=== PATIENT | male | born 1965 | race Caucasian/White ===

== ENCOUNTER 2017-10-14 18:54 | Inpatient (IN) | payer SELFPAY ==
[~2017-10-14] VITALS: Ht 185.4 cm; Wt 98.6 kg
[~2017-10-14 18:54] MED LIST: TOPA50TA7 PO; VIST50CA PO
[2017-10-14 19:10] VITALS: BP 160/111; PULSE 115; RESP 22; TEMP 98.3; O2SAT 95
[2017-10-14] MEDS ORDERED: SODIUM CHLOR 0.9% 1000 ML INJ 1,000 ML IV SCH ×2 (19:10→21:30)
[2017-10-14] MEDS ORDERED: ONDANSETRON HCL 4 MG/2 ML VIAL IVP ONE (19:15)
[2017-10-14] MEDS ORDERED: SODIUM CHLORIDE 0.9% FLUSH 10 ML FLUSH IV FLUSH PRN (19:15)
[2017-10-14] MEDS ORDERED: PANTOPRAZOLE SODIUM 40 MG VIAL IVP ONE (19:15)
[2017-10-14] MEDS ORDERED: HYDROmorphone HCL PF 2 MG/ML VIAL IV PUSH ONE ×2 (19:15→19:45)
--- NOTE | 2017-10-14 19:15 | PD ---
HPI Chief Complaint: Abdominal Pain Time Seen by Provider: 19:10 Travel History International Travel<30 days: No Contact w/Intl Traveler<30days: No Traveled to known affect area: No History of Present Illness HPI 52-year-old male presents to the emergency department by private transportation for severe abdominal pain since last evening. Symptoms have been persistent. Patient had nausea no report of hematemesis coffee-ground emesis or bilious emesis. Symptoms began after eating Belgian food last evening. Patient has history of previous pancreatitis and denies gallbladder disease or peptic ulcer disease. Patient also has history of mood disorder has been out of his medication for 2 months. No report of fever or chills. No complaint of chest pain but does complain of shortness of breath. Patient is very anxious and intermittently volatile in his speak and relying history information. Budget Manager also provides history. Pain is severe and constant. Symptoms are worsened by movement and talking. History of alcohol use. Last alcohol use 3 days ago. PFSH Past Medical History Narrative Medical Anxiety depression adjustment disorder pancreatitis; alcohol use; nursing notes reviewed Anxiety: Yes Depression: Yes Psychiatric: Yes (ba in past) Pancreatitis: Yes Social History Alcohol Use: Yes (hx of 4 -10 a day) Tobacco Use: No Substance Use: Yes (ALCOHOL ABUSE) Allergies-Medications (Allergen,Severity, Reaction): Coded Allergies: No Known Allergies (Verified Adverse Reaction, Unknown, 10/14/17) Reported Meds & Prescriptions Reported Meds & Active Scripts Active Reported Vistaril (Hydroxyzine Pamoate) 50 Mg Cap 50 Mg PO HS Topamax (Topiramate) 50 Mg Tab 50 Mg PO BID Review of Systems Except as stated in HPI: all other systems reviewed are Neg Physical Exam Narrative GENERAL: Well-developed well-nourished male in obvious discomfort SKIN: Warm and dry. HEAD: Normocephalic. EYES: No scleral icterus. No injection or drainage. NECK: Supple, trachea midline. No JVD or lymphadenopathy. CARDIOVASCULAR: Regular rate and rhythm without murmurs, gallops, or rubs. RESPIRATORY: Breath sounds equal bilaterally. No accessory muscle use. GASTROINTESTINAL: Abdomen soft, tender, nondistended. MUSCULOSKELETAL: No cyanosis, or edema. BACK: Nontender without obvious deformity. No CVA tenderness. Data Data Last Documented VS Vital Signs Date Time Temp Pulse Resp B/P (MAP) Pulse Ox O2 Delivery O2 Flow Rate FiO2 10/14/17 20:17 18 10/14/17 19:57 111 151/104 (120) 95 Room Air 10/14/17 19:10 98.3 Orders Orders Complete Blood Count With Diff (10/14/17 19:10) Comprehensive Metabolic Panel (10/14/17 19:10) Lipase (10/14/17 19:10) Lactic Acid (10/14/17:10) Prothrombin Time / Inr (Pt) (10/14/17:10) Act Partial Throm Time (Ptt) (10/14/17:10) Urinalysis - C+S If Indicated (10/14/17:10) Ct Abd/Pel W Iv Contrast(Rout) (10/14/17:10) Iv Access Insert/Monitor (10/14/17 19:10) Ecg Monitoring (10/14/17:10) Oximetry (10/14/17:10) Ondansetron Inj (Zofran Inj) (10/14/17 19:15) Pantoprazole Inj (Protonix Inj) (10/14/17 19:15) Sodium Chlor 0.9% 1000 Ml Inj (Ns 1000 M (10/14/17 19:10) Sodium Chloride 0.9% Flush (Ns Flush) (10/14/17 19:15) Electrocardiogram (10/14/17 19:10) Chest, Single Ap (10/14/17 19:10) Hydromorphone Pf Inj (Dilaudid Pf Inj) (10/14/17 19:15) Magnesium (Mg) (10/14/17 19:10) Troponin I (10/14/17 19:10) Hydromorphone Pf Inj (Dilaudid Pf Inj) (10/14/17 19:45) Sodium Chlor 0.9% 1000 Ml Inj (Ns 1000 M (10/14/17 20:15) Blood Culture (10/14/17 20:04) Piperacil-Tazo 4.5 Gm Premix (Zosyn 4.5 (10/14/17 20:15) Sodium Chlor 0.9% 1000 Ml Inj (Ns 1000 M (10/14/17 20:15) Lactic Acid (10/14/17 21:20) Iohexol 350 Inj (Omnipaque 350 Inj) (10/14/17 20:47) Alcohol Withdrawal Asmt-Ciwa ONCE (10/14/17 21:24) Flumazenil Inj (Romazicon Inj) (10/14/17 21:30) Lorazepam (Ativan) (10/14/17 21:30) Lorazepam Inj (Ativan Inj) (10/14/17 21:30) Lorazepam (Ativan) (10/14/17 21:30) Lorazepam Inj (Ativan Inj) (10/14/17 21:30) Lorazepam Inj (Ativan Inj) (10/14/17 21:30) Lorazepam Inj (Ativan Inj) (10/14/17 21:30) NPO (10/14/17 21:24) Sodium Chlor 0.9% 1000 Ml Inj (Ns 1000 M (10/14/17 21:30) Admit Order (Ed Use Only) (10/14/17 ) [employer] General Manager / Telemetry [id number] (10/14/17 21:31) Diet Npo (10/15/17 Breakfast) Activity Oob With Assistance (10/14/17 21:31) Notify Dr: Other (10/14/17 21:31) Labs Laboratory Tests Test 10/14/17 19:20 White Blood Count 17.1 TH/MM3 Red Blood Count 6.14 MIL/MM3 Hemoglobin 18.5 GM/DL Hematocrit 56.3 % Mean Corpuscular Volume 91.8 FL Mean Corpuscular Hemoglobin 30.2 PG Mean Corpuscular Hemoglobin Concent 32.9 % Red Cell Distribution Width 13.4 % Platelet Count 308 TH/MM3 Mean Platelet Volume 8.6 FL Neutrophils (%) (Auto) 85.0 % Lymphocytes (%) (Auto) 8.9 % Monocytes (%) (Auto) 5.4 % Eosinophils (%) (Auto) 0.3 % Basophils (%) (Auto) 0.4 % Neutrophils # (Auto) 14.5 TH/MM3 Lymphocytes # (Auto) 1.5 TH/MM3 Monocytes # (Auto) 0.9 TH/MM3 Eosinophils # (Auto) 0.1 TH/MM3 Basophils # (Auto) 0.1 TH/MM3 CBC Comment DIFF FINAL Differential Comment Prothrombin Time 10.4 SEC Prothromb Time International Ratio 1.0 RATIO Activated Partial Thromboplast Time 25.0 SEC Blood Urea Nitrogen 10 MG/DL Creatinine 1.30 MG/DL Random Glucose 175 MG/DL Total Protein 7.7 GM/DL Albumin 3.9 GM/DL Calcium Level 9.1 MG/DL Magnesium Level 2.2 MG/DL Alkaline Phosphatase 90 U/L Aspartate Amino Transf (AST/SGOT) 63 U/L Alanine Aminotransferase (ALT/SGPT) 100 U/L Total Bilirubin 1.7 MG/DL Sodium Level 135 MEQ/L Potassium Level 3.9 MEQ/L Chloride Level 98 MEQ/L Carbon Dioxide Level 23.0 MEQ/L Anion Gap 14 MEQ/L Estimat Glomerular Filtration Rate 58 ML/MIN Lactic Acid Level 4.2 mmol/L Troponin I LESS THAN 0.02 NG/ML Lipase 6448 U/L MDM Medical Decision Making Medical Screen Exam Complete: Yes Emergency Medical Condition: Yes Medical Record Reviewed: Yes Interpretation(s) Stat portable chest x-ray no subdiaphragmatic free air or pneumoperitoneum no effusion CT a/p: CONCLUSION: Findings are suspicious for acute pancreatitis with stranding and induration of the peripancreatic fat and some free fluid tracking along Gerota's fascia on the right side. Naren Worthington MD on October 14, 2017 at 20:52 Board Certified Radiologist. This report was verified electronically. CBC & BMP Diagram 10/14/17 19:20 Total Protein 7.7, Albumin 3.9, Calcium Level 9.1, Magnesium Level 2.2, Alkaline Phosphatase 90, Aspartate Amino Transf (AST/SGOT) 63 H, Alanine Aminotransferase (ALT/SGPT) 100 H, Total Bilirubin 1.7 H Vital Signs Date Time Temp Pulse Resp B/P (MAP) Pulse Ox O2 Delivery O2 Flow Rate FiO2 10/14/17 20:17 18 10/14/17 19:57 111 20 151/104 (120) 95 Room Air 10/14/17 19:52 20 10/14/17 19:28 22 98 Room Air 10/14/17 19:10 98.3 115 22 160/111 (127) 95 Differential Diagnosis Abdominal pain pancreatitis perforated viscus cholecystitis choledocholithiasis bowel obstruction ACS myocardial infarction aortic dissection alcohol withdrawal Boerhaave's Narrative Course Patient placed on hospital monitor in obvious distress IV access obtained specimens collected and sent for resulting patient ordered Zofran 4 mg IV Dilaudid 1 mg IV and IV fluids patient kept n.p.o. Patient given additional dose of Dilaudid 1 mg IV and additional liter of normal saline 8:30 PM patient has clinically improved blood pressure has responded to medication heart rate has improved patient continues to have very tender abdomen on exam has been sent to CT for imaging study lab values are consistent with acute pancreatitis; based on fluoroscopy sepsis criteria and patient meets sepsis criteria blood cultures obtained additional lactic acid ordered and patient presumptively covered with Zosyn 4.[address] consistent with acute pancreatitis Patient's case discussed with on-call medicine for admission and [place] precautions added to ED orders due to history of alcohol use/alcohol consumption 3 days ago. Sepsis Criteria SIRS Criteria (2 or more): Heart rate over 90, WBC > 44874, < 4000 or > 10% bands Sepsis Criteria (SIRS+source): Infect source susp/known Severe Sepsis (+one): Lactate >2 Septic Shock Criteria: Lactic acid >=4 Physician Communication Physician Communication call placed to [facility] service for admission Diagnosis Primary Impression: Pancreatitis, acute Additional Impressions: H/O alcohol abuse Sepsis Admitting Information Admitting Physician Requests: Admit Mikaela Andrew MD Oct 14, 2017 19:15
--- NOTE | 2017-10-14 19:26 | RADRPT ---
EXAM DATE/TIME: 10/14/2017 19:15 [facility] COMPARISON: No previous studies available for comparison. INDICATIONS : Evaluate for free air. MEDICAL HISTORY : None. SURGICAL HISTORY : None. ENCOUNTER: Initial ACUITY: 1 day PAIN SCORE: 10/10 LOCATION: Bilateral lower chest FINDINGS: A single portable upright view of the chest demonstrates the lungs to be symmetrically aerated withou t evidence of mass, infiltrate or effusion. The cardiomediastinal contours are unremarkable. Osseou s structures are intact. No evidence of free air under either hemidiaphragm. CONCLUSION: The lungs are clear. Naren Worthington MD on October 14, 2017 at 19:23 Board Certified Radiologist. This report was verified electronically.
[2017-10-14 19:28] VITALS: RESP 22; O2SAT 98
[2017-10-14 19:41] LABS: AUTOMATED NEUTROPHIL # 14.5 TH/MM3 (1.8-7.7); BASOPHIL # 0.1 TH/MM3 (0-0.2); BASOPHIL % 0.4 % (0.0-2.0); EOSINOPHIL # 0.1 TH/MM3 (0-0.4); EOSINOPHIL % 0.3 % (0.0-4.0); HEMATOCRIT 56.3 % (39.0-51.0); HEMOGLOBIN 18.5 GM/DL (13.0-17.0); LYMPH % 8.9 % (9.0-44.0); LYMPHOCYTE # 1.5 TH/MM3 (1.0-4.8); MEAN CELL VOLUME 91.8 FL (80.0-100.0); MEAN CORPUSCULAR HEMOGLOBIN 30.2 PG (27.0-34.0); MEAN CORPUSCULAR HGB CONC 32.9 % (32.0-36.0); MEAN PLATELET VOLUME 8.6 FL (7.0-11.0); MONO % 5.4 % (0.0-8.0); MONOCYTE # 0.9 TH/MM3 (0-0.9); PLATELET COUNT 308 TH/MM3 (150-450); RED BLOOD COUNT 6.14 MIL/MM3 (4.50-5.90); RED CELL DISTRIBUTION WIDTH 13.4 % (11.6-17.2); WHITE BLOOD COUNT 17.1 TH/MM3 (4.0-11.0)
[2017-10-14 19:42] LABS: CHLORIDE 98 MEQ/L (98-107); SODIUM (NA) 135 MEQ/L (136-145)
[2017-10-14 19:45] LABS: CALCIUM 9.1 MG/DL (8.5-10.1)
[2017-10-14 19:46] LABS: ALBUMIN 3.9 GM/DL (3.4-5.0); BLOOD UREA NITROGEN 10 MG/DL (7-18); GLUCOSE,RANDOM 175 MG/DL (74-106); MAGNESIUM 2.2 MG/DL (1.5-2.5)
[2017-10-14 19:49] LABS: ALT (GPT) 100 U/L (12-78); AST (GOT) 63 U/L (15-37); GLOMERULAR FILTRATION RATE 58 ML/MIN (>89)
[2017-10-14 19:50] LABS: TOTAL BILIRUBIN ADULT 1.7 MG/DL (0.2-1.0); TOTAL PROTEIN 7.7 GM/DL (6.4-8.2)
[2017-10-14 19:52] LABS: ALKALINE PHOSPHATASE 90 U/L (45-117)
[2017-10-14 19:53] LABS: PROTHROMBIN TIME - PATIENT 10.4 SEC (9.8-11.6)
[2017-10-14 19:54] LABS: TROPONIN I LESS THAN 0.02 NG/ML (0.02-0.05)
[2017-10-14 19:57] VITALS: BP 151/104; PULSE 111; RESP 20; O2SAT 95
[2017-10-14] MEDS ORDERED: PIPERACIL-TAZO 4.5 GM PREMIX 100 ML IV ONE (20:15)
[2017-10-14] MEDS ORDERED: SODIUM CHLOR 0.9% 1000 ML INJ 1,000 ML IV ONE ×2 (20:15)
[2017-10-14] MEDS ORDERED: IOHEXOL 350 MG/ML 10 ML VIAL (for RAD DIAG) IVCONTRAST ONE (20:47)
--- NOTE | 2017-10-14 20:58 | RADRPT ---
EXAM DATE/TIME: 10/14/2017 20:30 [facility] COMPARISON: CT ABDOMEN & PELVIS W CONTRAST, March 13, 2016, 8:04. INDICATIONS : Epigastric pain. IV CONTRAST: 100 cc Omnipaque 350 (iohexol) IV ORAL CONTRAST: No oral contrast ingested. RADIATION DOSE: 14.04 CTDIvol (mGy) MEDICAL HISTORY : Pancreatitis. SURGICAL HISTORY : None. ENCOUNTER: Initial ACUITY: 1 day PAIN SCALE: 10/10 LOCATION: Bilateral upper quadrant TECHNIQUE: Volumetric scanning of the abdomen and pelvis was performed. Using automated exposure control and ad justment of the mA and/or kV according to patient size, radiation dose was kept as low as reasonably achievable to obtain optimal diagnostic quality images. DICOM format image data is available electro nically for review and comparison. FINDINGS: LOWER LUNGS: There are patchy areas of interstitial opacity in the lower right lung which is a new finding from pr ior CT. No focal areas of consolidation or pleural effusion stop LIVER: Severe diffuse fatty change of the liver unchanged from prior. The gallbladder is distended, but no calcified gallstones. SPLEEN: Normal size without lesion. PANCREAS: Abnormal appearance to the anterior pararenal space with strandy densities surrounding the pancreas; no focal fluid collections within the anterior pararenal space, but there is some free fluid tracking along the anterior margin of Gerota's fascia and the right upper quadrant. No evidence of pseudocys t. KIDNEYS: Normal in size and shape. There is no mass, stone or hydronephrosis. The small left renal cysts are similar to prior. ADRENAL GLANDS: Within normal limits. VASCULAR: There is no aortic aneurysm. BOWEL/MESENTERY: The stomach, small bowel, and colon demonstrate no acute abnormality. There is no free intraperitone al air or fluid. ABDOMINAL WALL: Within normal limits. RETROPERITONEUM: There is no lymphadenopathy. BLADDER: No wall thickening or mass. REPRODUCTIVE: Within normal limits. INGUINAL: There is no lymphadenopathy or hernia. MUSCULOSKELETAL: Within normal limits for patient age. CONCLUSION: Findings are suspicious for acute pancreatitis with stranding and induration of the peripancreatic fa t and some free fluid tracking along Gerota's fascia on the right side. Naren Worthington MD on October 14, 2017 at 20:52 Board Certified Radiologist. This report was verified electronically.
[2017-10-14] MEDS ORDERED: BISACODYL 10 MG SUPP RECTAL PRN (21:30)
[2017-10-14] MEDS ORDERED: ONDANSETRON HCL 4 MG/2 ML VIAL IVP PRN (21:30)
[2017-10-14] MEDS ORDERED: LORazepam 1 MG TAB PO PRN (21:30)
[2017-10-14] MEDS ORDERED: FLUMAZENIL 0.5 MG/5 ML VIAL IV PUSH PRN (21:30)
[2017-10-14] MEDS ORDERED: ACETAMINOPHEN 325 MG TAB PO PRN (21:30)
[2017-10-14] MEDS ORDERED: LORazepam 2 MG/ML VIAL IV PUSH PRN ×4 (21:30)
[2017-10-14] MEDS ORDERED: ACETAMINOPHEN/HYDROcodone 325 MG/5 MG TAB PO PRN (21:30)
[2017-10-14] MEDS ORDERED: SENNOSIDES 8.6 MG TAB PO PRN (21:30)
[2017-10-14] MEDS ORDERED: MAGNESIUM HYDROXIDE SUSP 30 ML CUP PO PRN (21:30)
[2017-10-14] MEDS ORDERED: LACTULOSE SYRUP 20 GM/30 ML CUP PO PRN (21:30)
[2017-10-14] MEDS ORDERED: LORazepam 2 MG TAB PO PRN (21:30)
[2017-10-14 22:13] LABS: BILIRUBIN, URINE NEG (NEG); BLOOD, URINE NEG (NEG); GLUCOSE,URINE NEG (NEG); KETONE, URINE NEG (NEG); NITRITE,URINE NEG (NEG); PH, URINE 8.5 (5.0-8.5); URINE LEUKOCYTE ESTERASE NEG (NEG)
[2017-10-14 22:21] LABS: MUCUS URINE OCC /lpf (OCC); SQUAMOUS EPITHELIAL CELL URINE 0-5 /hpf (0-5); URINE COLOR YELLOW (YELLW/STRAW)
[2017-10-14] MEDS: SODIUM CHLOR 0.9% 1000 ML INJ 1,000 ML IV SCH (22:25)
[2017-10-14 22:38] VITALS: BP 157/105; PULSE 98; RESP 16; O2SAT 97
[2017-10-14 22:50] VITALS: BP 176/101; PULSE 65; RESP 20; TEMP 96.3; O2SAT 95
[2017-10-14] MEDS ORDERED: cloNIDine HCL 0.1 MG TAB PO ONE (23:15)
[2017-10-15] VITALS (9 sets, daily range): BP systolic 127–175; BP diastolic 84–110; PULSE 64–84; RESP 14–20; TEMP 96.7–98.1; O2SAT 96–97
[2017-10-15] MEDS: MORPHINE SULFATE 2 MG/ML INJ IV PUSH PRN ×2 (00:03→03:07)
[2017-10-15] MEDS: PIPERACIL-TAZO 4.5 GM PREMIX 100 ML IV SCH ×4 (01:56→21:02)
[2017-10-15] MEDS ORDERED: MORPHINE SULFATE 4 MG/ML INJ IV PUSH ONE (05:30)
[2017-10-15] MEDS: SODIUM CHLOR 0.9% 1000 ML INJ 1,000 ML IV SCH ×2 (05:59→17:23)
[2017-10-15 06:19] LABS: AUTOMATED NEUTROPHIL # 11.1 TH/MM3 (1.8-7.7); BASOPHIL % 0.1 % (0.0-2.0); EOSINOPHIL # 0.1 TH/MM3 (0-0.4); EOSINOPHIL % 0.5 % (0.0-4.0); HEMOGLOBIN 15.8 GM/DL (13.0-17.0); LYMPH % 10.1 % (9.0-44.0); LYMPHOCYTE # 1.3 TH/MM3 (1.0-4.8); MEAN CELL VOLUME 90.9 FL (80.0-100.0); MEAN CORPUSCULAR HEMOGLOBIN 31.3 PG (27.0-34.0); MEAN CORPUSCULAR HGB CONC 34.4 % (32.0-36.0); MEAN PLATELET VOLUME 8.1 FL (7.0-11.0); MONO % 5.5 % (0.0-8.0); MONOCYTE # 0.7 TH/MM3 (0-0.9); NEUT % 83.8 % (16.0-70.0); PLATELET COUNT 206 TH/MM3 (150-450); RED BLOOD COUNT 5.06 MIL/MM3 (4.50-5.90); RED CELL DISTRIBUTION WIDTH 13.6 % (11.6-17.2); WHITE BLOOD COUNT 13.2 TH/MM3 (4.0-11.0)
[2017-10-15 06:36] LABS: ALBUMIN 3.1 GM/DL (3.4-5.0); ALKALINE PHOSPHATASE 65 U/L (45-117); ALT (GPT) 66 U/L (12-78); AST (GOT) 42 U/L (15-37); BICARBONATE 25.9 MEQ/L (21.0-32.0); BLOOD UREA NITROGEN 8 MG/DL (7-18); CALCIUM 7.7 MG/DL (8.5-10.1); CHLORIDE 106 MEQ/L (98-107); CREATININE 0.91 MG/DL (0.60-1.30); GLOMERULAR FILTRATION RATE 87 ML/MIN (>89); GLUCOSE,RANDOM 118 MG/DL (74-106); SODIUM (NA) 139 MEQ/L (136-145); TOTAL BILIRUBIN ADULT 1.3 MG/DL (0.2-1.0); TOTAL PROTEIN 6.1 GM/DL (6.4-8.2)
[2017-10-15] MEDS: SODIUM CHLORIDE 0.9% FLUSH 10 ML FLUSH IV FLUSH SCH ×2 (08:44→21:02)
[2017-10-15] MEDS: TOPIRAMATE 25 MG TAB PO SCH ×2 (08:45→21:03)
[2017-10-15] MEDS: FAMOTIDINE 20 MG/2 ML VIAL IV PUSH SCH ×2 (08:45→21:04)
[2017-10-15] MEDS: DOCUSATE SODIUM 50 MG/SENNA 8.6 MG TAB PO SCH ×2 (08:46→21:05)
[2017-10-15] MEDS ORDERED: cloNIDine HCL 0.1 MG TAB PO PRN (09:15)
[2017-10-15] MEDS: HYDROmorphone HCL PF 2 MG/ML VIAL IV PUSH PRN ×4 (09:17→21:20)
[2017-10-15] MEDS ORDERED: INFLUENZA VIRUS VACCINE (QUADRIVALENT) 0.5 ML SYR IM ONE (10:00)
--- NOTE | 2017-10-15 10:54 | EKG ---
Date Performed: 10/14/2017 Time Performed: 19:23:03 PTAGE: 52 years EKG: Sinus rhythm BORDERLINE LEFT AXIS DEVIATION BORDERLINE ECG NO PREVIOUS TRACING DOCTOR: Jerry Quevedo Interpretating Date/Time 10/15/2017 10:50:41
--- NOTE | 2017-10-15 11:02 | HHI.HP ---
[facility] Primary Care Physician Admission Diagnosis Pancreatitis; h/o alcohol use Diagnoses: (1) Pancreatitis, acute Diagnosis: Principal (2) Alcohol abuse Chief Complaint: Abdominal pain Travel History International Travel<30 Days: No Contact w/Intl Traveler <30 Da: No Traveled to Known Affected Are: No History of Present Illness This is a pleasant 52-year-old male patient with a known medical history of alcohol abuse, I poor disorder and borderline personality disorder who presented to the ED with complaints of abdominal pain area patient states that he has had severe abdominal pain has been worsening over the past two days. He states that he suffered from this abdominal pain for over twenty hours and attempted Tums [id number] with little relief. Patient does admit to nausea and one bout of vomiting, denies any fevers or chills, diarrhea. The last vomit was two days ago. Denies any blood in stool. Denies any recent illness including influenza or upper respiratory infection. Denies any changes in medicines. He does state that he has been out of his medicines for over three months due to lack of ability to get them are for them. He is unsure of what medicines he was on for his psychiatry problems. He was last hospitalized nine months ago at [facility] for acute pancreatitis. Does admit to current daily alcohol abuse. Review of Systems Constitutional: DENIES: Fatigue, Fever, Chills Eyes: DENIES: Blurred vision, Diplopia Respiratory: DENIES: Cough, Sputum production, Shortness of breath Cardiovascular: DENIES: Chest pain, Palpitations Gastrointestinal: COMPLAINS OF: Abdominal pain, Nausea, DENIES: Black stools, Bloody stools, Constipation, Diarrhea, Vomiting Hematologic/lymphatic: DENIES: Bruising Immunologic/allergic: DENIES: Eczema Neurologic: DENIES: Abnormal gait Psychiatric: DENIES: Anxiety Except as stated in HPI: all other systems reviewed are Neg Past Family Social History Past Medical History Alcohol abuse Bipolar depression disorder Borderline personality disorder Past Surgical History Bilateral cataract Reported Medications Current Medications Medications (Trade) Dose Ordered Sig/Marlen Route Start Time Stop Time Status Last Admin (Romazicon Inj) 0.2 mg Q1M PRN IV PUSH 10/14/17 21:30 (Ativan) 1 mg Q4H PRN PO 10/14/17 21:30 (Ativan Inj) 1 mg Q4H PRN IV PUSH 10/14/17 21:30 (Ativan) 2 mg Q2H PRN PO 10/14/17 21:30 (Ativan Inj) 2 mg Q2H PRN IV PUSH 10/14/17 21:30 (Ativan Inj) 2 mg Q1H PRN IV PUSH 10/14/17 21:30 (Ativan Inj) 2 mg Q15M PRN IV PUSH 10/14/17 21:30 Piperacillin Sod/ Tazobactam Sod 100 ml @ 200 mls/hr Q6H IV 10/15/17 02:00 10/15/17 08:44 (Pepcid Inj) 20 mg Q12H IV PUSH 10/15/17 09:00 10/15/17 08:45 Sodium Chloride 1,000 ml @ 100 mls/hr Q10H IV 10/14/17 21:29 10/15/17 05:59 (NS Flush) 2 ml UNSCH PRN IV FLUSH 10/14/17 21:30 (NS Flush) 2 ml BID IV FLUSH 10/15/17 09:00 (Zofran Inj) 4 mg Q6H PRN IVP 10/14/17 21:30 10/15/17 05:59 (Tylenol) 650 mg Q6H PRN PO 10/14/17 21:30 (Encinal 5-325 Mg) 1 tab Q4H PRN PO 10/14/17 21:30 (Rita-Colace) 1 tab BID PO 10/15/17 09:00 10/15/17 08:46 (Milk Of Magnesia Liq) 30 ml Q12H PRN PO 10/14/17 21:30 (Senokot) 17.2 mg Q12H PRN PO 10/14/17 21:30 (Dulcolax Supp) 10 mg DAILY PRN RECTAL 10/14/17 21:30 (Lactulose Liq) 30 ml DAILY PRN PO 10/14/17 21:30 (Vistaril) 50 mg HS PO 10/15/17 21:00 (Topamax) 50 mg BID PO 10/15/17 09:00 10/15/17 08:45 (Dilaudid Pf Inj) 1 mg Q4H PRN IV PUSH 10/15/17 09:15 10/15/17 09:17 (Catapres) 0.1 mg Q6H PRN PO 10/15/17 09:15 10/15/17 09:15 Allergies: Coded Allergies: No Known Allergies (Verified Allergy, Unknown, 10/14/17) Active Ordered Medications Current Medications Medications (Trade) Dose Ordered Sig/Marlen Route Start Time Stop Time Status Last Admin (Romazicon Inj) 0.2 mg Q1M PRN IV PUSH 10/14/17 21:30 (Ativan) 1 mg Q4H PRN PO 10/14/17 21:30 (Ativan Inj) 1 mg Q4H PRN IV PUSH 10/14/17 21:30 (Ativan) 2 mg Q2H PRN PO 10/14/17 21:30 (Ativan Inj) 2 mg Q2H PRN IV PUSH 10/14/17 21:30 (Ativan Inj) 2 mg Q1H PRN IV PUSH 10/14/17 21:30 (Ativan Inj) 2 mg Q15M PRN IV PUSH 10/14/17 21:30 Piperacillin Sod/ Tazobactam Sod 100 ml @ 200 mls/hr Q6H IV 10/15/17 02:00 10/15/17 08:44 (Pepcid Inj) 20 mg Q12H IV PUSH 10/15/17 09:00 10/15/17 08:45 Sodium Chloride 1,000 ml @ 100 mls/hr Q10H IV 10/14/17 21:29 10/15/17 05:59 (NS Flush) 2 ml UNSCH PRN IV FLUSH 10/14/17 21:30 (NS Flush) 2 ml BID IV FLUSH 10/15/17 09:00 (Zofran Inj) 4 mg Q6H PRN IVP 10/14/17 21:30 10/15/17 05:59 (Tylenol) 650 mg Q6H PRN PO 10/14/17 21:30 (Encinal 5-325 Mg) 1 tab Q4H PRN PO 10/14/17 21:30 (Rita-Colace) 1 tab BID PO 10/15/17 09:00 10/15/17 08:46 (Milk Of Magnesia Liq) 30 ml Q12H PRN PO 10/14/17 21:30 (Senokot) 17.2 mg Q12H PRN PO 10/14/17 21:30 (Dulcolax Supp) 10 mg DAILY PRN RECTAL 10/14/17 21:30 (Lactulose Liq) 30 ml DAILY PRN PO 10/14/17 21:30 (Vistaril) 50 mg HS PO 10/15/17 21:00 (Topamax) 50 mg BID PO 10/15/17 09:00 10/15/17 08:45 (Dilaudid Pf Inj) 1 mg Q4H PRN IV PUSH 10/15/17 09:15 10/15/17 09:17 (Catapres) 0.1 mg Q6H PRN PO 10/15/17 09:15 10/15/17 09:15 Family History Family history significant for diabetes. Social History Patient does admit to drinking alcohol daily, he states he has had 26, 25 ounce beers per day. Denies any smoking or tobacco use. Does admit to frequent cocaine use. Physical Exam Vital Signs Vital Signs Date Time Temp Pulse Resp B/P (MAP) Pulse Ox O2 Delivery O2 Flow Rate FiO2 10/15/17 08:00 98.1 76 16 168/110 (129) 96 10/15/17 04:00 97.1 72 20 170/107 (128) 97 10/15/17 03:00 64 10/15/17 00:00 96.7 69 20 175/105 (128) 96 10/14/17 23:03 10/14/17 22:50 96.3 65 20 176/101 (126) 95 10/14/17 22:38 98 16 157/105 (122) 97 10/14/17 20:17 18 10/14/17 19:57 111 20 151/104 (120) 95 Room Air 10/14/17 19:52 20 10/14/17 19:28 22 98 Room Air 10/14/17 19:10 98.3 115 22 160/111 (127) 95 Physical Exam GENERAL: Well-nourished, well-developed patient in NAD. SKIN: Warm and dry. No rash. HEAD: Normocephalic. Atraumatic. EYES: Pupils equal and round. No scleral icterus. No injection or drainage. ENT: No nasal bleeding or discharge. Mucous membranes pink and moist. NECK: Supple. Trachea midline. CARDIOVASCULAR: Regular rate and rhythm. S1, S2 noted. No murmur appreciated. RESPIRATORY: No accessory muscle use. Clear to auscultation. Breath sounds equal bilaterally. GASTROINTESTINAL: Abdomen round, firm and tender to palpation. Normoactive bowel sounds x4. MUSCULOSKELETAL: No obvious deformities. Extremities without clubbing, cyanosis , or edema. NEUROLOGICAL: Awake and alert. No obvious cranial nerve deficits. Motor grossly within normal limits. 5/5 muscle strength in bilateral upper and lower extremities. Normal speech. PSYCHIATRIC: Appropriate mood and affect; insight and judgment normal. Laboratory Laboratory Tests Test 10/14/17 19:20 10/14/17 22:05 10/14/17 22:08 10/15/17 05:45 White Blood Count 17.1 13.2 Red Blood Count 6.14 5.06 Hemoglobin 18.5 15.8 Hematocrit 56.3 46.0 Mean Corpuscular Volume 91.8 90.9 Mean Corpuscular Hemoglobin 30.2 31.3 Mean Corpuscular Hemoglobin Concent 32.9 34.4 Red Cell Distribution Width 13.4 13.6 Platelet Count 308 206 Mean Platelet Volume 8.6 8.1 Neutrophils (%) (Auto) 85.0 83.8 Lymphocytes (%) (Auto) 8.9 10.1 Monocytes (%) (Auto) 5.4 5.5 Eosinophils (%) (Auto) 0.3 0.5 Basophils (%) (Auto) 0.4 0.1 Neutrophils # (Auto) 14.5 11.1 Lymphocytes # (Auto) 1.5 1.3 Monocytes # (Auto) 0.9 0.7 Eosinophils # (Auto) 0.1 0.1 Basophils # (Auto) 0.1 0.0 CBC Comment DIFF FINAL DIFF FINAL Differential Comment Prothrombin Time 10.4 Prothromb Time International Ratio 1.0 Activated Partial Thromboplast Time 25.0 Blood Urea Nitrogen 10 8 Creatinine 1.30 0.91 Random Glucose 175 118 Total Protein 7.7 6.1 Albumin 3.9 3.1 Calcium Level 9.1 7.7 Magnesium Level 2.2 Alkaline Phosphatase 90 65 Aspartate Amino Transf (AST/SGOT) 63 42 Alanine Aminotransferase (ALT/SGPT) 100 66 Total Bilirubin 1.7 1.3 Sodium Level 135 139 Potassium Level 3.9 3.9 Chloride Level 98 106 Carbon Dioxide Level 23.0 25.9 Anion Gap 14 7 Estimat Glomerular Filtration Rate 58 87 Lactic Acid Level 4.2 1.4 Troponin I LESS THAN 0.02 Lipase 6448 4996 Urine Color YELLOW Urine Turbidity CLEAR Urine pH 8.5 Urine Specific [place] GREATER THAN 1.035 Urine Protein 30 Urine Glucose (UA) NEG Urine Ketones NEG Urine Occult Blood NEG Urine Nitrite NEG Urine Bilirubin NEG Urine Leukocyte Esterase NEG Urine Squamous Epithelial Cells 0-5 Urine Mucus OCC Microscopic Urinalysis Comment CULT NOT INDICATED Date/Time Source Procedure Growth Status 10/14/17 20:25 Blood Peripheral Aerobic Blood Culture Pending Received 10/14/17 20:25 Blood Peripheral Anaerobic Blood Culture Pending Received Result Diagram: 10/15/17 0545 10/15/17 0545 Imaging Last Impressions Abdomen/Pelvis CT 10/14/17 191 Signed Impressions: Service Date/Time: Saturday, October 14, 2017 20:30 - CONCLUSION: Findings are suspicious for acute pancreatitis with stranding and induration of the peripancreatic fat and some free fluid tracking along Gerota's fascia on the right side. Naren Worthington MD Septic Shock Reassessment Septic shock perfusion: reassessment completed Caprini VTE Risk Assessment Caprini VTE Risk Assessment: No/Low Risk (score <= 1) Caprini Risk Assessment Model Point Value = 1 Point Value = 2 Point Value = 3 Point Value = 5 Age 41-60 Minor surgery BMI > 25 kg/m2 Swollen legs Varicose veins or History of unexplained or recurrent spontaneous Oral contraceptives or hormone replacement Sepsis (< 1 month) Serious lung disease, including pneumonia (< 1 month) Abnormal pulmonary function Acute myocardial infarction Congestive heart failure (< 1 month) History of inflammatory bowel disease Medical patient at bed rest Age 61-74 Arthroscopic surgery Major open surgery (> 45 min) Laparoscopic surgery (> 45 min) Malignancy Confined to bed (> 72 hours) Immobilizing plaster cast Central venous access Age >= 75 History of VTE Family history of VTE Factor V Leiden Prothrombin [id number] Lupus anticoagulant Anticardiolipin antibodies Elevated serum homocysteine Heparin-induced thrombocytopenia Other congenital or acquired thrombophilia Stroke (< 1 month) Elective arthroplasty Hip, pelvis, or leg fracture Acute spinal cord injury (< 1 month) Prophylaxis Regimen Total Risk Factor Score Risk Level Prophylaxis Regimen 0-1 Low Early ambulation 2 Moderate Order ONE of the following: *Sequential Compression Device (SCD) *Heparin 5000 units SQ BID 3-4 Higher Order ONE of the following medications: *Heparin 5000 units SQ TID *Enoxaparin/Lovenox 40 mg SQ daily (WT < 150 kg, CrCl > 30 mL/min) *Enoxaparin/Lovenox 30 mg SQ daily (WT < 150 kg, CrCl > 10-29 mL/min) *Enoxaparin/Lovenox 30 mg SQ BID (WT < 150 kg, CrCl > 30 mL/min) AND/OR *Sequential Compression Device (SCD) 5 or more Highest Order ONE of the following medications: *Heparin 5000 units SQ TID (Preferred with Epidurals) *Enoxaparin/Lovenox 40 mg SQ daily (WT < 150 kg, CrCl > 30 mL/min) *Enoxaparin/Lovenox 30 mg SQ daily (WT < 150 kg, CrCl > 10-29 mL/min) *Enoxaparin/Lovenox 30 mg SQ BID (WT < 150 kg, CrCl > 30 mL/min) AND *Sequential Compression Device (SCD) Assessment and Plan Problem List: (1) Pancreatitis, acute ICD Code: K85.90 - Acute pancreatitis without necrosis or infection, unspecified Status: Acute Plan: Abdominal/pelvis CT reviewed showing acute pancreatitis with stranding and induration of the pancreatic fat and some free fluid tracking along Gerotas fascia on the right side. Patient given IV fluids, continue. Pain control, IV Dilaudid available when necessary as needed. Encinal available for pain scale. Supportive care. Supplemental O2 as needed, patient comfortable on room air. (2) Alcohol abuse ICD Code: F10.10 - Alcohol abuse, uncomplicated Status: Acute (3) Adjustment disorder ICD Code: F43.20 - Adjustment disorder, unspecified Status: Acute Assessment and Plan This is a pleasant 52-year-old male patient with a known medical history of alcohol abuse, I poor disorder and borderline personality disorder who presented to the ED with complaints of abdominal pain area patient states that he has had severe abdominal pain has been worsening over the past two days. Acute pancreatitis suspect secondary to chronic alcohol abuse Abdominal CT reviewed showing acute pancreatitis is stranding and induration of the peripancreatic fat. Lipase 6448 on presentation now down to 4964. Leukocytosis suspect secondary to above. Trending down on CBC today. Continue to monitor. Afebrile. Monitor for infection. UA negative. Pain control, Dilaudid IV available when necessary. Encinal available when necessary as needed per pain scale. Continue IV fluid. Status post IV 3 L bolus in ed. Control nausea, Phenergan as needed. Placed on IV Zosyn and Levaquin. CIWA protocol. Encouraged cessation. Seizure precautions. Monitor for withdrawals. Hypertension on presentation, likely secondary to pain. Patient does not have a history of hypertension. Clonidine as needed. Continue to monitor BP trends. May need to start BP medication. Bipolar disorder History of Multiple personality disorder Patient is unaware of what medicines he was taking at home. States he ran out three months ago. RN to call pharmacy as well as patient will attempt to get list of medicines from home. Supportive care. DVT prophylaxis: SCDs. Physician Certification 2 Midnight Certification Type: Admission for Inpatient Services Order for Inpatient Services The services are ordered in accordance with Medicare regulations or non- Medicare payer requirements, as applicable. In the case of services not specified as inpatient-only, they are appropriately provided as inpatient services in accordance with the 2-midnight benchmark. Estimated LOS (days): 2 2 days is the estimated time the patient will need to remain in the hospital, assuming treatment plan goals are met and no additional complications. Post-Hospital Plan: Home Gaye Ellison Oct 15, 2017 11:02
[2017-10-15] MEDS ORDERED: PROMETHAZINE HCL 25 MG TAB PO PRN (13:15)
[2017-10-15] MEDS ORDERED: TRAZ50TA12 PO (17:26)
[2017-10-15] MEDS ORDERED: CALCIUM GLUCONATE INJ 1 GM in DEXTROSE 5% IN WATER 100ML INJ 100 ML IV ONE ×2 (18:00)
[2017-10-15] MEDS: SODIUM CHLORIDE 0.9% FLUSH 10 ML FLUSH IV FLUSH PRN (21:20)
[2017-10-16] VITALS: BP 128/84; PULSE 68; RESP 20; TEMP 98.5; O2SAT 97
[2017-10-16] MEDS: PIPERACIL-TAZO 4.5 GM PREMIX 100 ML IV SCH ×2 (01:44→08:26)
[2017-10-16] MEDS: HYDROmorphone HCL PF 2 MG/ML VIAL IV PUSH PRN ×3 (01:44→09:39)
[2017-10-16] MEDS: SODIUM CHLORIDE 0.9% FLUSH 10 ML FLUSH IV FLUSH PRN ×2 (01:45→05:43)
[2017-10-16] MEDS: SODIUM CHLOR 0.9% 1000 ML INJ 1,000 ML IV SCH (01:45)
[2017-10-16 04:00] VITALS: BP 128/81; PULSE 76; RESP 20; TEMP 98.1; O2SAT 94
[2017-10-16 07:34] VITALS: PULSE 79
[2017-10-16 08:00] VITALS: BP 167/96; PULSE 76; RESP 18; TEMP 97.8; O2SAT 99
[2017-10-16] MEDS: FAMOTIDINE 20 MG/2 ML VIAL IV PUSH SCH (08:26)
[2017-10-16] MEDS: DOCUSATE SODIUM 50 MG/SENNA 8.6 MG TAB PO SCH (08:26)
[2017-10-16] MEDS: SODIUM CHLORIDE 0.9% FLUSH 10 ML FLUSH IV FLUSH SCH (08:26)
[2017-10-16] MEDS: TOPIRAMATE 25 MG TAB PO SCH (08:27)
[2017-10-16 08:32] LABS: AUTOMATED NEUTROPHIL # 10.2 TH/MM3 (1.8-7.7); BASOPHIL # 0.2 TH/MM3 (0-0.2); BASOPHIL % 1.1 % (0.0-2.0); EOSINOPHIL # 0.4 TH/MM3 (0-0.4); EOSINOPHIL % 3.2 % (0.0-4.0); HEMOGLOBIN 15.7 GM/DL (13.0-17.0); LYMPH % 12.5 % (9.0-44.0); LYMPHOCYTE # 1.7 TH/MM3 (1.0-4.8); MEAN CELL VOLUME 92.1 FL (80.0-100.0); MEAN CORPUSCULAR HEMOGLOBIN 32.2 PG (27.0-34.0); MEAN CORPUSCULAR HGB CONC 34.9 % (32.0-36.0); MEAN PLATELET VOLUME 7.8 FL (7.0-11.0); MONO % 9.2 % (0.0-8.0); MONOCYTE # 1.3 TH/MM3 (0-0.9); PLATELET COUNT 211 TH/MM3 (150-450); RED BLOOD COUNT 4.89 MIL/MM3 (4.50-5.90); RED CELL DISTRIBUTION WIDTH 13.7 % (11.6-17.2); WHITE BLOOD COUNT 13.8 TH/MM3 (4.0-11.0)
[2017-10-16 08:38] LABS: CHLORIDE 100 MEQ/L (98-107); SODIUM (NA) 132 MEQ/L (136-145)
[2017-10-16 08:41] LABS: CALCIUM 8.1 MG/DL (8.5-10.1)
[2017-10-16 08:42] LABS: ALBUMIN 3.3 GM/DL (3.4-5.0); BICARBONATE 26.1 MEQ/L (21.0-32.0); BLOOD UREA NITROGEN 5 MG/DL (7-18); GLUCOSE,RANDOM 91 MG/DL (74-106)
[2017-10-16 08:45] LABS: ALT (GPT) 57 U/L (12-78); AST (GOT) 29 U/L (15-37); CREATININE 0.95 MG/DL (0.60-1.30); GLOMERULAR FILTRATION RATE 83 ML/MIN (>89)
[2017-10-16 08:47] LABS: TOTAL BILIRUBIN ADULT 1.5 MG/DL (0.2-1.0); TOTAL PROTEIN 7.3 GM/DL (6.4-8.2)
[2017-10-16 08:48] LABS: ALKALINE PHOSPHATASE 71 U/L (45-117)
[2017-10-16] MEDS ORDERED: ACETAMINOPHEN/HYDROcodone 325 MG/7.5 MG TAB PO PRN (10:15)
[2017-10-16] MEDS ORDERED: ACETAMINOPHEN/HYDROcodone 325 MG/5 MG TAB PO PRN (10:30)
--- NOTE | 2017-10-16 11:57 | HHI.PR ---
Subjective Remarks Patient seen and examined today for follow-up on pancreatitis. Patient has had a significant response to treatment. Patient is doing much better. Pain is control There is been no other episodes of any nausea or vomiting. Patient states that he did have some tenderness when he drank his breakfast this morning. Patient's only concern is that he can get his appropriate psychotropic medications that was prescribed by [facility]. Patient states that is barely 6 months since he then either facility for follow-up. Patient has been without his medications for at least 4-5 months. He states that he was self-medicating with alcohol and drugs and that is why he is has pancreatitis at this time. The patient is quite frustrated because he states that he is been trying to convince multiple people, nursing, nurse practitioners, faculty of his need for the medications and he does not feel that anyone is listening to him or relaying the information to the other employees. The patient does not appear to be too concerned about his abdominal pain. He is sitting up in bed, does not have any objective findings of any acute pain. He is moving around without any signs of peritoneal discomfort. Patient has tolerated breakfast and lunch. He indicated to nursing staff that he does feel comfortable going home after dinner today. The patient does want refills of his medications upon discharge. I notified him that he would have to go back to the facility : [facility] in order to be reevaluated and prescriptions for his medications. Patient was not too pleased with that response. Objective Vitals Vital Signs Date Time Temp Pulse Resp B/P (MAP) Pulse Ox O2 Delivery O2 Flow Rate FiO2 10/16/17 08:00 97.8 76 18 167/96 (119) 99 10/16/17 04:00 98.1 76 20 128/81 (97) 94 10/16/17 00:00 98.5 68 20 128/84 (99) 97 10/15/17 20:00 75 10/15/17 20:00 97.8 75 20 129/84 (99) 96 10/15/17 18:00 97.7 84 14 137/94 (108) 96 10/15/17 15:01 82 10/15/17 12:00 97.9 77 14 127/89 (102) 97 I/O 10/15/17 10/15/17 10/15/17 10/16/1718 2/13/18 07:00 15:00 23:00 07:00 15:00 23:00 Intake Total 1925 ml 200 ml 1690 ml 1875 ml 718 ml Output Total 2250 ml 300 ml 1225 ml Balance -325 ml 200 ml 1390 ml 650 ml 718 ml Intake Oral 840 ml 480 ml 720 ml 718 ml IV Total 1085 ml 200 ml 1210 ml 1155 ml Output Urine Total 2250 ml 300 ml 1225 ml # Voids 1 4 4 # Bowel Movements 0 0 0 Result Diagram: 10/16/1782410/16/17824 Objective Remarks GENERAL: Well-developed, well-nourished, in no acute distress. alert and orientated HEENT: Head is normocephalic without any lesions or masses noted. Facial features are symmetric. Eyes: Extraocular muscles are intact. Conjunctivae were clear. NECK: Supple without any masses. Trachea midline no deviation. No JVD, CARDIAC: Regular rhythm, regular rate. S1/S2 are heard. No murmurs gallops or rubs. LUNGS: Clear to auscultation bilaterally. No wheeze, rhonchi or rales. No use of accessory muscles on inspiration or expiration. ABDOMEN: Soft, nontender. Nondistended. Bowel sounds heard in all 4 quadrants. No organomegaly or masses. Negative rebound, negative guarding EXTREMITIES: No edema, pulses are equal bilaterally. No cyanosis or clubbing NEUROLOGY: Mood, patient is very angry affect could be some mild heightening. Cranial nerves II through XII grossly intact. Moving all extremities, speech is clear Urinary Catheter: No Vascular Central Line Catheter: No A/P Assessment and Plan Pancreatitis, significantly improved CT scan does show pancreatitis with stranding induration of the peripancreatic fat Lipase has continued to trend downwards Patient tolerating by mouth pain medication, no longer requiring IV pain medication Discontinue IV fluids Patient tolerating diet, Advance diet as tolerated Polysubstance abuse Monitor for alcohol withdrawal CIWA protocol, patient is not required any need for Ativan No clinical signs or objective findings of acute withdrawal History of bipolar disorder Patient was not actively taking any medications, he never had follow-up or had any refills of medications that were prescribed by [facility] approximate 5- 6 months ago Discussed the patient that he will need to return to [facility] upon discharge for reevaluation and management of his underlying psychiatric disorder DVT prevention Sequential compression devices Discharge Planning Discharge home in stable condition Activity: Ad arvind. Diet: Regular diet Medications per medication reconciliation Follow-up primary medical doctor in one week Chaim Zavala Oct 16, 2017 11:57
[2017-10-16 12:00] VITALS: BP 134/85; PULSE 85; RESP 16; TEMP 98.6; O2SAT 96
[2017-10-16] MEDS ORDERED: HYDR-3516 PO (15:52)
--- NOTE | 2017-10-16 15:52 | HHI.DCPOC ---
Discharge Care Plan Diagnosis: (1) Pancreatitis, acute Goals to Promote Your Health * To prevent worsening of your condition and complications * To maintain your health at the optimal level Directions to Meet Your Goals Take your medications as prescribed Follow your dietary instruction Follow activity as directed Keep your appointments as scheduled Take your immunizations and boosters as scheduled If your symptoms worsen call your PCP, if no PCP go to Urgent Care Center or Emergency Room Smoking is Dangerous to Your Health. Avoid second hand smoke Call the 24-hour hour crisis hotline for domestic abuse at Chaim Zavala Oct 16, 2017 15:52
[2017-10-16 16:00] VITALS: BP 138/91; PULSE 81; RESP 14; TEMP 99.1; O2SAT 94
[2017-10-16] MEDS ORDERED: FAMOTIDINE 20 MG TAB PO SCH (21:00)
== END 2017-10-16 19:00 | disposition home or self-care (01) | DRG 440 ==
LOC: PHED 18:54 → PHEDA 21:33 → PH3A 22:50
PROVIDERS: ADMIT Hospitalist; ATTEND Hospitalist
DX: K85.90 Acute pancreatitis without necrosis or infection, unspecified (principal); I10 Essential (primary) hypertension; F31.9 Bipolar disorder, unspecified; F10.10 Alcohol abuse, uncomplicated; F60.3 Borderline personality disorder; F14.90 Cocaine use, unspecified, uncomplicated; F43.20 Adjustment disorder, unspecified; Z23 Encounter for immunization
CPT/HCPCS: 71045; 74177; 80053; 81001; 83605; 83690; 83735; 84484; 85025; 85610; 85730; 87040; 90686; 93005; 96361; 96365; 96375; C9113; J0610; J1170; J2270; J2405; J2543; J7030; Q2038; Q9967

== ENCOUNTER 2018-07-11 15:41 | Inpatient (IN) ==
[2018-07-11] MEDS ORDERED: Tetanus/Diphtheria Toxoid Adult Vaccine Inj 0.5 ML Vial IM ONE (16:16)
--- NOTE | 2018-07-11 16:44 | XR ---
EXAM DATE: 07/11/2018 4:31 PM EST AGE/SEX: 53 years / Male INDICATIONS: Right 4th digit hand infection; possible spider bite. CLINICAL DATA: This is the patient's initial encounter. Patient reports that signs and symptoms have been present for 1 week and indicates a pain score of 10/10. MEDICAL/SURGICAL HISTORY: None. None. COMPARISON: No prior exams available for comparison. FINDINGS: 3 views of the right fourth digit. Bone alignment within normal limits. No evidence of fracture. No e vidence of joint narrowing. No focal bone erosion. No radiopaque foreign body identified. CONCLUSION: Fourth digit radiographs within normal limits. Electronically signed by: Julian Salvador MD 07/11/2018 4:43 PM EST
[2018-07-11 17:05] LABS: Baso % (Auto) 0.6 % (0.0-2.0); Eos # (Auto) 0.3 th/mm3 (0.0-0.4); Eos % (Auto) 4.3 % (0.0-4.0); Hematocrit 48.5 % (39.0-51.0); Hemoglobin 16.7 gm/dL (13.0-17.0); Lymph # (Auto) 1.6 th/mm3 (1.0-4.8); Lymph % (Auto) 20.1 % (9.0-44.0); Mean Corpuscular HGB Conc 34.4 % (32.0-36.0); Mean Corpuscular Volume 93.1 fL (80.0-100.0); Mean Platelet Volume 8.1 fL (7.0-11.0); Mono # (Auto) 0.8 th/mm3 (0.0-0.9); Mono % (Auto) 10.5 % (0.0-8.0); Neut # (Auto) 5.3 th/mm3 (1.8-7.7); Neut % (Auto) 64.5 % (16.0-70.0); Platelet Count 305 th/mm3 (150-450); Red Cell Distribution Width 13.6 % (11.6-17.2)
[2018-07-11 17:16] LABS: Chloride 103 meq/L (98-107); Potassium 3.9 meq/L (3.5-5.1); Sodium 136 meq/L (136-145)
[2018-07-11 17:19] LABS: Anion Gap 7 meq/L (5-15); Calcium 8.5 mg/dL (8.5-10.1); Carbon Dioxide 26.4 meq/L (21.0-32.0); Glucose,Random 119 mg/dL (74-106)
[2018-07-11 17:20] LABS: Blood Urea Nitrogen 16 mg/dL (7-18)
[2018-07-11 17:23] LABS: Glomerular Filtration Rate Greater Than 89 mL/min (>89)
--- NOTE | 2018-07-11 17:23 | ED ---
HPI General Chief complaint: Skin/Abscess/Foreign Body Stated complaint: POSSIBLE SPIDER BITE/ RT HAND RING FINGER Time Seen by Provider: 07/11/18 16:11 Source: patient Mode of arrival: ambulatory Limitations: no limitations History of Present Illness HPI narrative: This is a 53-year-old male here with possible spider bite to the right fourth digit. He reports approximately 1 week ago he was helping move some boxes out of the garage when he sustained a painful bite to the finger. He has been bandaging the wound with duct tape. The area had a bite tico which consisted of 2 puncture wounds several millimeters apart. He developed a blister which has continued to spread up the finger with peeling skin bleeding and ulcerated wound with malodorous drainage. Denies fever chills. Now has limited flexion of the finger. Severity is moderate. Related Data Home Medications Medication Instructions Recorded Confirmed bupropion HCl 150 mg PO HS 07/11/18 07/11/18 fluoxetine 20 mg PO HS 07/11/18 07/11/18 hydroxyzine pamoate [Vistaril] 25 mg PO QID 07/11/18 07/11/18 ziprasidone HCl 40 mg PO HS 07/11/18 07/11/18 Allergies Allergy/AdvReac Type Severity Reaction Status Date / Time No Known Allergies Allergy Verified 07/11/18 15:46 Review of Systems ROS: all other systems reviewed are negative [facility] Medical History Medical History Bipolar 1 disorder (Acute) Borderline personality disorder (Acute) Pancreatitis (Acute) Social History Social History Substance History: Active Abuse Second Hand Smoke Exposure: No Smoking Status: Never smoker How Often Do You Have a Drink Containing Alcohol: 2 to 3 times a week Substance Abuse Detail Crack/Cocaine: Substance Use Status: Active Route Used Substance Abuse: By Mouth Substance Frequency: "VERY RARELY" Reason for Use: Get High Immunization History Tetanus Immunization: Unsure Exam Narrative Exam Narrative: GENERAL: Well-nourished, well-developed patient. HEAD: Normocephalic. EYES: No injection or drainage. NECK: Supple CARDIOVASCULAR: Regular rate and rhythm. No murmur appreciated RESPIRATORY: Breath sounds equal bilaterally. No accessory muscle use. GASTROINTESTINAL: Abdomen soft, non-tender, nondistended. MUSCULOSKELETAL: No cyanosis, or edema. Right hand: There is a 3.5 centimeter ulcerated wound to the dorsum over the proximal phalanx with purulent malodorous drainage. There is also macerated peeling skin throughout the finger. Distal sensation is intact. Limited flexion at the MCP and IP joint. Cap refill intact BACK: No CVA tenderness. Course Initial Documented Vital Signs Temperature 97.8 F 07/11/18 15:44 Pulse Rate 76 07/11/18 15:44 Respiratory Rate 16 07/11/18 15:44 Blood Pressure 153/102 H 07/11/18 15:44 Pulse Oximetry 96 07/11/18 15:44 Last Documented Vital Signs Temperature 97.8 F 07/11/18 19:08 Pulse Rate 77 07/11/18 19:08 Respiratory Rate 18 07/11/18 19:08 Blood Pressure 131/93 H 07/11/18 19:08 Pulse Oximetry 97 07/11/18 19:08 Medical Decision Making MDM Narrative Medical decision making narrative: 53-year-old male here with ulcerated wound to the right fourth digit, severe pain, limited range of motion. IV access established, labs, x-ray, blood cultures, wound culture ordered and pending Case was discussed with on-call hand surgeon Dr. Lund who would like the patient admitted to medicine. IV antibiotics. NPO after midnight. Plan for surgical debridement of the wound tomorrow. Spoke with Dr. Huerta [facility] who agrees to admit patient to their service. Medical Screen Exam Complete: Yes Emergency Medical Condition: Yes Differential Diagnosis Differential Diagnosis: Cellulitis, abscess, infected insect bite Lab Data Result diagrams: 07/11/18 16:55 07/11/18 16:55 Lab Results 07/11/18 07/11/18 07/11/18 Range/Units 16:55 16:55 16:55 CBC w Diff Auto diff final WBC 8.0 (4.0-11.0) th/mm3 RBC 5.20 (4.50-5.90) mil/mm3 Hgb 16.7 (13.0-17.0) gm/dL Hct 48.5 (39.0-51.0) % MCV 93.1 (80.0-100.0) fL MCH 32.0 (27.0-34.0) pg MCHC 34.4 (32.0-36.0) % RDW 13.6 (11.6-17.2) % Plt Count 305 (150-450) th/mm3 MPV 8.1 (7.0-11.0) fL Neut % (Auto) 64.5 (16.0-70.0) % Lymph % (Auto) 20.1 (9.0-44.0) % [place] % (Auto) 10.5 H (0.0-8.0) % Eos % (Auto) 4.3 H (0.0-4.0) % Baso % (Auto) 0.6 (0.0-2.0) % Neut # (Auto) 5.3 (1.8-7.7) th/mm3 Lymph # (Auto) 1.6 (1.0-4.8) th/mm3 [place] # (Auto) 0.8 (0.0-0.9) th/mm3 Eos # (Auto) 0.3 (0.0-0.4) th/mm3 Baso # (Auto) 0.0 (0.0-0.2) th/mm3 WBC Differential . Differential Comment . Sodium 136 (136-145) meq/L Potassium 3.9 (3.5-5.1) meq/L Chloride 103 (98-107) meq/L Carbon Dioxide 26.4 (21.0-32.0) meq/L Anion Gap 7 (5-15) meq/L BUN 16 (7-18) mg/dL Creatinine 0.87 (0.60-1.30) mg/dL Estimated GFR Greater than 89 (>89) mL/min Random Glucose 119 H (74-106) mg/dL Lactic Acid 1.0 (0.4-2.0) mmol/L Calcium 8.5 (8.5-10.1) mg/dL Imaging Data Radiologist's impression: Finger X-Ray 07/11/18 16:19 CONCLUSION: Fourth digit radiographs within normal limits. Discharge Plan Discharge Disposition Patient Disposition: 30 Still Patient Discharge Details Diagnosis: Cellulitis of hand Physicians Team ED Provider: Gaye Zhu ED Midlevel Provider: Kamala Gould Primary Care Provider: Primary Care Lucnida Garsia Attending Provider: Andrey Huerta Other Providers: Juliana Lund Status ED Status: Admitted Observation Patient
[2018-07-11] MEDS ORDERED: Vancomycin Inj 1,000 MG in Sodium Chlor 0.9% Inj 250 ML IV.SIG ONE (17:54)
[2018-07-11] MEDS ORDERED: Acetaminophen 325 MG Tablet PO PRN (18:32)
[2018-07-11] MEDS ORDERED: Bisacodyl 10 MG Supp RECTAL PRN (18:32)
[2018-07-11] MEDS ORDERED: Vancomycin Consult Pharmacy OTHER PRN (18:34)
[2018-07-11] MEDS: Sod Chloride 0.9% Inj 1,000 ML IV.CONT SCH (18:51)
[2018-07-11] MEDS: Ampicillin/Sulbactam Inj 3 GM in Sodium Chloride 0.9% Inj 100 ML IV.SIG SCH (19:33)
--- NOTE | 2018-07-11 20:29 | P.HP ---
History of Present Illness Service: Hospitalist Primary Care Physician: No Primary Care Physician Chief Complaint: Right 4th finger infection. History of Present Illness: Mr. Santacruz is a pleasant 53-year-old male with a history of bipolar disorder, borderline personality disorder who presents to the emergency department on 07/11/2018 due to worsening infection of his right hand fourth digit. Patient works in [employer] business. However he believes his finger flexion is likely due to a spider bite. Approximately 7 days ago, patient noticed a small pustular lesion on the tip of his fourth digit. He squeezed it and placed a Band-Aid. Gradually, however, his lesion only got worse despite using Band-Aid and topical antibiotics. He did not have any fever or chills. His finger started becoming more purplish in color. Due to worsening of his symptoms he decided to come to the emergency department. Patient denies any chest pain, shortness of breath, fever or chills. He denies any abdominal pain , changes in bowel or bladder habits. Hand surgery was contacted by ED provider. Patient will likely undergo hand surgery tomorrow 07/12/2018. Past medical history: Bipolar disorder, borderline personality disorder. Also has a history of alcoholic pancreatitis. Past surgical history: No major surgery in the past Social history: Patient denies using tobacco or alcohol. However he does not smoke cocaine. Family history: Father's side has a history of diabetes mellitus. Review of Systems All other systems reviewed negative except as stated in [facility] - History History Provided By: Patient - Medical History Medical History: Medical History (Last Reviewed 07/11/18 @ 22:16 by Andrey Huerta DO) Bipolar 1 disorder Borderline personality disorder Pancreatitis - Tobacco History Second Hand Smoke Exposure: No Smoking Status: Never smoker - Alcohol History How Often Do You Have a Drink Containing Alcohol: 2 to 3 times a week - Substance Use History Substance History: Active Abuse - Substance Use Type Crack/Cocaine Status: Active Route Used: By Mouth Frequency: "VERY RARELY" Reason for Use: Get High - Immunization History Tetanus Immunization: Unsure Medications and Allergies Active Medications: Active Medications Acetaminophen (Tylenol) 650 mg PO Q4H PRN PRN Reason: Headache, fever, pain 1-4 Al Hydroxide/Mg Hydroxide (Milk Of Magnesia Liq) 30 ml PO Q12H PRN PRN Reason: Mild Constipation Bisacodyl (Dulcolax Supp) 10 mg RECTAL DAILY PRN PRN Reason: SEVERE CONSITIPATION Sodium Chloride (Ns Inj) 1,000 mls @ 100 mls/hr IV.CONT .Q10H MEERA Last Admin: 07/11/18 18:51 Dose: 100 mls/hr Ampicillin Sodium/Sulbactam (Sodium 3 gm/ Sodium Chloride) 100 mls @ 200 mls/ hr IV.SIG Q6H MEERA Last Infusion: 07/11/18 20:06 Dose: Infused Vancomycin HCl 1,500 mg/ (Sodium Chloride) 515 mls @ 250 mls/hr IV.SIG Q12H MEERA Lactulose (Lactulose Liq) 30 ml PO DAILY PRN PRN Reason: SEVERE CONSITIPATION Miscellaneous Information ([facility] Ordered Lab Info) 0 each OTHER ONCE ONE Stop: 07/13/18 15:46 Ondansetron HCl (Zofran Inj) 4 mg IV.PUSH Q6H PRN PRN Reason: NAUSEA OR VOMITING Pharmacy Profile Note (Vancomycin Consult Pharmacy) 1 each OTHER UNSCH PRN PRN Reason: Pharmacy to dose Sennosides (Senokot) 17.2 mg PO Q12H PRN PRN Reason: Moderate Constipation Allergies Allergy/AdvReac Type Severity Reaction Status Date / Time No Known Allergies Allergy Verified 07/11/18 15:46 Home Medications Medication Instructions Recorded Confirmed Type bupropion HCl 150 mg PO HS 07/11/18 07/11/18 History fluoxetine 20 mg PO HS 07/11/18 07/11/18 History hydroxyzine pamoate [Vistaril] 25 mg PO QID 07/11/18 07/11/18 History ziprasidone HCl 40 mg PO HS 07/11/18 07/11/18 History Exam Vital signs: Vital Signs 07/11/18 15:44 07/11/18 19:08 Temperature 97.8 F 97.8 F Pulse Rate 76 77 Respiratory Rate 16 18 Blood Pressure 153/102 H 131/93 H Pulse Oximetry 96 97 Intake & Output 07/11/18 07/11/18 07/12/18 06:59 18:59 06:59 Intake Total 350 / 350 Balance 350 / 350 Weight 89 kg Intake: IV 350 / 350 Unasyn Inj 3 GM In NS Inj 100 100 / 100 ML @ 200 mls/hr IV.SIG Q6H MEERA Rx#:[id number] Vancomycin Inj 1,000 MG In NS 250 / 250 Inj 250 ML @ 250 mls/hr IV.SIG ONCE ONE Rx#:[id number] Narrative: GENERAL: This is a well-nourished, well-developed patient, in no apparent distress. SKIN: No rashes, ecchymoses or lesions. Warm and dry. HEAD: Atraumatic. Normocephalic. No temporal or scalp tenderness. EYES: Pupils equal round and reactive. No injection or drainage. ENT: Nose without bleeding, purulent drainage or septal hematoma. Airway patent. NECK: Trachea midline. No lymphadenopathy. Supple, nontender, no meningeal signs. CARDIOVASCULAR: Regular rate and rhythm without murmurs, gallops, or rubs. No JVD. RESPIRATORY: Clear to auscultation. Breath sounds equal bilaterally. No wheezes , rales, or rhonchi. GASTROINTESTINAL: Abdomen soft, non-tender, nondistended. No guarding. MUSCULOSKELETAL: Extremities without clubbing, cyanosis, or edema. Right hand is mostly wrapped in dressing especially digits 3 and 4. Tip of the digit for appears to be purplish in color. He is able to move his hands. He does report some tenderness in his digit 3 as well as wrist. NEUROLOGICAL: Awake and alert. Cranial nerves II through XII intact. No focal neurological deficits. Normal speech. Results - Labs CBC & Chem 7: 07/11/18 16:55 07/11/18 16:55 Labs: Laboratory Results - last 24 hr 07/11/18 07/11/18 07/11/18 16:55 16:55 16:55 CBC w Diff Auto diff final WBC 8.0 RBC 5.20 Hgb 16.7 Hct 48.5 MCV 93.1 MCH 32.0 MCHC 34.4 RDW 13.6 Plt Count 305 MPV 8.1 Neut % (Auto) 64.5 Lymph % (Auto) 20.1 [place] % (Auto) 10.5 H Eos % (Auto) 4.3 H Baso % (Auto) 0.6 Neut # (Auto) 5.3 Lymph # (Auto) 1.6 [place] # (Auto) 0.8 Eos # (Auto) 0.3 Baso # (Auto) 0.0 WBC Differential . Differential Comment . Sodium 136 Potassium 3.9 Chloride 103 Carbon Dioxide 26.4 Anion Gap 7 BUN 16 Creatinine 0.87 Estimated GFR Greater than 89 Random Glucose 119 H Lactic Acid 1.0 Calcium 8.5 - Imaging Impressions Finger X-Ray 07/11/18 16:19 CONCLUSION: Fourth digit radiographs within normal limits. Caprini VTE Risk Assessment Caprini VTE Risk Assessment: No/Low Risk (score <= 1) Caprini Risk Assessment Model: Point Value = 1 Point Value = 2 Point Value = 3 Point Value = 5 Age 41-60 Minor surgery BMI > 25 kg/m2 Swollen legs Varicose veins or History of unexplained or recurrent spontaneous Oral contraceptives or hormone replacement Sepsis (< 1 month) Serious lung disease, including pneumonia (< 1 month) Abnormal pulmonary function Acute myocardial infarction Congestive heart failure (< 1 month) History of inflammatory bowel disease Medical patient at bed rest Age 61-74 Arthroscopic surgery Major open surgery (> 45 min) Laparoscopic surgery (> 45 min) Malignancy Confined to bed (> 72 hours) Immobilizing plaster cast Central venous access Age >= 75 History of VTE Family history of VTE Factor V Leiden Prothrombin [id number] Lupus anticoagulant Anticardiolipin antibodies Elevated serum homocysteine Heparin-induced thrombocytopenia Other congenital or acquired thrombophilia Stroke (< 1 month) Elective arthroplasty Hip, pelvis, or leg fracture Acute spinal cord injury (< 1 month) Prophylaxis Regimen: Total Risk Factor Score Risk Level Prophylaxis Regimen 0-1 Low Early ambulation 2 Moderate Order ONE of the following: *Sequential Compression Device (SCD) *Heparin 5000 units SQ BID 3-4 Higher Order ONE of the following medications: *Heparin 5000 units SQ TID *Enoxaparin/Lovenox 40 mg SQ daily (WT < 150 kg, CrCl > 30 mL/min) *Enoxaparin/Lovenox 30 mg SQ daily (WT < 150 kg, CrCl > 10-29 mL/min) *Enoxaparin/Lovenox 30 mg SQ BID (WT < 150 kg, CrCl > 30 mL/min) AND/OR *Sequential Compression Device (SCD) 5 or more Highest Order ONE of the following medications: *Heparin 5000 units SQ TID (Preferred with Epidurals) *Enoxaparin/Lovenox 40 mg SQ daily (WT < 150 kg, CrCl > 30 mL/min) *Enoxaparin/Lovenox 30 mg SQ daily (WT < 150 kg, CrCl > 10-29 mL/min) *Enoxaparin/Lovenox 30 mg SQ BID (WT < 150 kg, CrCl > 30 mL/min) AND *Sequential Compression Device (SCD) Assessment and Plan - Plan Mr. Santacruz is a very pleasant 53-year-old male with a history of bipolar disorder, borderline personality disorder, cocaine abuse who presents to the emergency department on 07/11/2018 due to worsening infection of his right hand fourth digit. Hand surgery was consulted from ED. Acute right hand fourth digit infection Worsening infection despite using topical antibiotics at home. We will continue broad-spectrum antibiotics with Unasyn and vancomycin. We will consult hand surgery. Surgical intervention likely tomorrow 07/12/2018 Tylenol and [place] for pain management. History of bipolar disorder History of borderline personality disorder No acute concerns. Cocaine abuse Patient is counseled. Full code. SCDs, ambulation.
[2018-07-12] MEDS: Ampicillin/Sulbactam Inj 3 GM in Sodium Chloride 0.9% Inj 100 ML IV.SIG SCH ×4 (01:44→19:58)
[2018-07-12] MEDS: Vancomycin Inj 1,500 MG in Sodium Chlor 0.9% Inj 500 ML IV.SIG SCH ×2 (03:27→16:09)
[2018-07-12] MEDS: Sod Chloride 0.9% Inj 1,000 ML IV.CONT SCH ×2 (04:20→17:58)
[2018-07-12 07:16] LABS: Glomerular Filtration Rate Greater Than 89 mL/min (>89)
--- NOTE | 2018-07-12 11:43 | P.PN ---
Subjective Interval history: Follow-up for right-sided fourth digit infection. Patient is currently doing well. No acute concerns. No fever or chills. Waiting for hand surgery to see him. Physical Exam Vital signs: Vital Signs 07/11/18 15:44 07/11/18 19:08 07/11/18 20:30 Temperature 97.8 F 97.8 F 97.5 F L Pulse Rate 76 77 74 Respiratory Rate 16 18 20 Blood Pressure 153/102 H 131/93 H 151/100 H Pulse Oximetry 96 97 96 07/12/18 00:00 07/12/18 04:00 07/12/18 08:00 Temperature 96.2 F L 96 F L 97.0 F L Pulse Rate 72 65 62 Respiratory Rate 20 20 18 Blood Pressure 124/88 123/83 127/81 Pulse Oximetry 95 95 96 Intake & Output 07/11/18 07/12/18 07/12/18 18:59 06:59 18:59 Intake Total 2325 / 2325 100 / 100 Output Total 875 / 875 Balance 1450 / 1450 100 / 100 Weight 89 kg 89.9 kg Intake: IV 1965 / 1965 100 / 100 NS Inj 1,000 ML @ 100 mls/hr IV 1000 / 1000 .CONT .Q10H MEERA Rx#:[id number] Unasyn Inj 3 GM In NS Inj 100 200 / 200 100 / 100 ML @ 200 mls/hr IV.SIG Q6H MEERA Rx#:[id number] Vancomycin Inj 1,000 MG In NS 250 / 250 Inj 250 ML @ 250 mls/hr IV.SIG ONCE ONE Rx#:[id number] Vancomycin Inj 1,500 MG In NS 515 / 515 Inj 500 ML @ 250 mls/hr IV.SIG Q12H MEERA Rx#:[id number] Oral 360 / 360 Output: Urine 875 / 875 Other: # Voids 1 Narrative: GENERAL: Alert, oriented x3, NAD. SKIN: Warm and dry. HEAD: Normocephalic. EYES: No scleral icterus. No injection or drainage. NECK: Supple, trachea midline. No JVD or lymphadenopathy. CARDIOVASCULAR: Regular rate and rhythm without murmurs, gallops, or rubs. RESPIRATORY: Breath sounds equal bilaterally. No accessory muscle use. GASTROINTESTINAL: Abdomen soft, non-tender, nondistended. MUSCULOSKELETAL: No cyanosis, or edema. Right hand third and fourth digits wrapped in bandage. Able to move fingers. BACK: Nontender without obvious deformity. No CVA tenderness. Results - Labs CBC & Chem 7: 07/11/18 16:55 07/12/18 06:15 Laboratory Results - last 24 hr 07/11/18 07/11/18 07/11/18 16:55 16:55 16:55 CBC w Diff Auto diff final WBC 8.0 RBC 5.20 Hgb 16.7 Hct 48.5 MCV 93.1 MCH 32.0 MCHC 34.4 RDW 13.6 Plt Count 305 MPV 8.1 Neut % (Auto) 64.5 Lymph % (Auto) 20.1 [place] % (Auto) 10.5 H Eos % (Auto) 4.3 H Baso % (Auto) 0.6 Neut # (Auto) 5.3 Lymph # (Auto) 1.6 [place] # (Auto) 0.8 Eos # (Auto) 0.3 Baso # (Auto) 0.0 WBC Differential . Differential Comment . Sodium 136 Potassium 3.9 Chloride 103 Carbon Dioxide 26.4 Anion Gap 7 BUN 16 Creatinine 0.87 Estimated GFR Greater than 89 Random Glucose 119 H Lactic Acid 1.0 Calcium 8.5 07/12/18 06:15 CBC w Diff WBC RBC Hgb Hct MCV MCH MCHC RDW Plt Count MPV Neut % (Auto) Lymph % (Auto) [place] % (Auto) Eos % (Auto) Baso % (Auto) Neut # (Auto) Lymph # (Auto) [place] # (Auto) Eos # (Auto) Baso # (Auto) WBC Differential Differential Comment Sodium Potassium Chloride Carbon Dioxide Anion Gap BUN Creatinine 0.77 Estimated GFR Greater than 89 Random Glucose Lactic Acid Calcium Microbiology 07/11/18 16:20 Wound - Finger Gram Stain - Final 07/11/18 16:20 Wound - Finger Wound Culture - Preliminary S. aureus MRSA 07/11/18 16:55 Blood - Line Aerobic Blood Culture - Preliminary No growth in 1 day 07/11/18 16:55 Blood - Line Anaerobic Blood Culture - Preliminary No growth in 1 day 07/11/18 16:50 Blood - Line Aerobic Blood Culture - Preliminary No growth in 1 day 07/11/18 16:50 Blood - Line Anaerobic Blood Culture - Preliminary No growth in 1 day - Imaging Impressions Finger X-Ray 07/11/18 16:19 CONCLUSION: Fourth digit radiographs within normal limits. Assessment and Plan - Plan Mr. Santacruz is a very pleasant 53-year-old male with a history of bipolar disorder, borderline personality disorder, cocaine abuse who presents to the emergency department on 07/11/2018 due to worsening infection of his right hand fourth digit. Hand surgery was consulted from ED. Acute right hand fourth digit infection Worsening infection despite using topical antibiotics at home. We will continue broad-spectrum antibiotics with Unasyn and vancomycin. Consulted hand surgery. Surgical intervention likely tomorrow 07/12/2018 Tylenol and [place] for pain management. History of bipolar disorder History of borderline personality disorder No acute concerns. Cocaine abuse Patient is counseled. Full code. SCDs, ambulation.
[2018-07-12] MEDS ORDERED: Chlorhexidine Gluconate 2% 1 Pack (2 Cloths) TOPICAL ONE (14:36)
[2018-07-12] MEDS ORDERED: Metoprolol Tartrate 25 MG Tablet PO ONE (14:36)
[2018-07-12] MEDS ORDERED: Sodium Chlor 0.9% Inj 500 ML IV.SIG SCH (15:00)
[2018-07-13] MEDS: Sod Chloride 0.9% Inj 1,000 ML IV.CONT SCH ×3 (00:01→21:00)
[2018-07-13] MEDS: Ampicillin/Sulbactam Inj 3 GM in Sodium Chloride 0.9% Inj 100 ML IV.SIG SCH ×2 (01:29→09:03)
[2018-07-13] MEDS: Vancomycin Inj 1,500 MG in Sodium Chlor 0.9% Inj 500 ML IV.SIG SCH ×2 (04:33→17:18)
[2018-07-13 07:48] LABS: Glomerular Filtration Rate Greater Than 89 mL/min (>89)
[2018-07-13] MEDS ORDERED: Lidocaine 2% Inj 50 ML Vial ONE (09:10)
[2018-07-13] MEDS ORDERED: Neomycin/Polymyxin G.U. Irrigant 1 ML Ampul ONE (09:10)
--- NOTE | 2018-07-13 10:23 | P.PN ---
Subjective Interval history: Follow-up for right-sided fourth digit infection. Patient is doing well. No acute concerns. Going for surgery today. Physical Exam Vital signs: Vital Signs 07/12/18 12:00 07/12/18 16:00 07/12/18 20:00 Temperature 97.2 F L 96.7 F L 96.4 F L Pulse Rate 56 L 56 L 57 L Respiratory Rate 20 18 18 Blood Pressure 118/88 131/89 130/88 Pulse Oximetry 96 96 98 07/13/18 00:00 07/13/18 08:00 Temperature 97.3 F L 96.6 F L Pulse Rate 66 64 Respiratory Rate 18 18 Blood Pressure 122/83 128/95 H Pulse Oximetry 94 L 95 Intake & Output 07/12/18 07/13/18 07/13/18 18:59 06:59 18:59 Intake Total 1715 / 1715 2700 / 2700 1515 / 1515 Balance 1715 / 1715 2700 / 2700 1515 / 1515 Weight 88.7 kg Intake: IV 1715 / 1715 1200 / 1200 1515 / 1515 NS Inj 1,000 ML @ 100 mls/hr IV 1000 / 1000 1000 / 1000 1000 / 1000 .CONT .Q10H MEERA Rx#:[id number] Unasyn Inj 3 GM In NS Inj 100 200 / 200 200 / 200 ML @ 200 mls/hr IV.SIG Q6H MEERA Rx#:[id number] Vancomycin Inj 1,500 MG In NS 515 / 515 515 / 515 Inj 500 ML @ 250 mls/hr IV.SIG Q12H MEERA Rx#:[id number] Other 1500 / 1500 Other: Other Intake Source Saline Solution # Voids 4 # Bowel Movements 0 Narrative: GENERAL: Alert, oriented x3, NAD. SKIN: Warm and dry. HEAD: Normocephalic. EYES: No scleral icterus. No injection or drainage. NECK: Supple, trachea midline. No JVD or lymphadenopathy. CARDIOVASCULAR: Regular rate and rhythm without murmurs, gallops, or rubs. RESPIRATORY: Breath sounds equal bilaterally. No accessory muscle use. GASTROINTESTINAL: Abdomen soft, non-tender, nondistended. MUSCULOSKELETAL: No cyanosis, or edema. Right hand third and fourth digits wrapped in bandage. Able to move fingers. BACK: Nontender without obvious deformity. No CVA tenderness. Results - Labs CBC & Chem 7: 11/08/18 16:55 07/13/18 06:20 Laboratory Results - last 24 hr 07/13/18 06:20 Creatinine 0.84 Estimated GFR Greater than 89 Microbiology 07/11/18 16:20 Wound - Finger Gram Stain - Final 07/11/18 16:20 Wound - Finger Wound Culture - Preliminary S. aureus MRSA Pseudomonas species 07/11/18 16:55 Blood - Line Aerobic Blood Culture - Preliminary No growth in 1 day 07/11/18 16:55 Blood - Line Anaerobic Blood Culture - Preliminary No growth in 1 day 07/11/18 16:50 Blood - Line Aerobic Blood Culture - Preliminary No growth in 1 day 07/11/18 16:50 Blood - Line Anaerobic Blood Culture - Preliminary No growth in 1 day Assessment and Plan - Plan Mr. Santacruz is a very pleasant 53-year-old male with a history of bipolar disorder, borderline personality disorder, cocaine abuse who presents to the emergency department on 07/11/2018 due to worsening infection of his right hand fourth digit. Hand surgery was consulted from ED. Acute right hand fourth digit infection Worsening infection despite using topical antibiotics at home. Currently on Unasyn and vancomycin. -Culture is growing MRSA and pseudomonas. Will start patient on Levaquin PO and d/c Unasyn. Consulted hand surgery. Surgical intervention likely today 07/13/2018. Tylenol and [place] for pain management. History of bipolar disorder History of borderline personality disorder No acute concerns. Continue home meds. Cocaine abuse Patient is counseled. Full code. SCDs, ambulation.
[2018-07-13] MEDS ORDERED: fentaNYL Citrate Inj 250 MCG/5 ML Ampul ONE (10:33)
[2018-07-13] MEDS: levoFLOXacin 750 MG Tablet PO SCH (11:25)
--- NOTE | 2018-07-13 11:50 | P.PNOP ---
Physical Exam Vital signs: Vital Signs 07/12/18 12:00 07/12/18 16:00 07/12/18 20:00 Temperature 97.2 F L 96.7 F L 96.4 F L Pulse Rate 56 L 56 L 57 L Respiratory Rate 20 18 18 Blood Pressure 118/88 131/89 130/88 Pulse Oximetry 96 96 98 07/13/18 00:00 07/13/18 08:00 07/13/18 09:40 Temperature 97.3 F L 96.6 F L 98.0 F Pulse Rate 66 64 59 L Respiratory Rate 18 18 16 Blood Pressure 122/83 128/95 H 147/98 H Pulse Oximetry 94 L 95 95 07/13/18 11:44 Temperature 97.5 F L Pulse Rate 72 Respiratory Rate 14 Blood Pressure 149/94 H Pulse Oximetry 95 Intake & Output 07/12/18 07/13/18 07/13/18 18:59 06:59 18:59 Intake Total 1715 / 1715 2700 / 2700 2415 / 2415 Balance 1715 / 1715 2700 / 2700 2415 / 2415 Weight 88.7 kg Intake: IV 1715 / 1715 1200 / 1200 1615 / 1615 NS Inj 1,000 ML @ 100 mls/hr IV 1000 / 1000 1000 / 1000 1000 / 1000 .CONT .Q10H MEERA Rx#:[id number] Unasyn Inj 3 GM In NS Inj 100 200 / 200 200 / 200 100 / 100 ML @ 200 mls/hr IV.SIG Q6H MEERA Rx#:[id number] Vancomycin Inj 1,500 MG In NS 515 / 515 515 / 515 Inj 500 ML @ 250 mls/hr IV.SIG Q12H MEERA Rx#:[id number] Anesthesia Amount 800 / 800 Other 1500 / 1500 Other: Other Intake Source Saline Solution # Voids 4 # Bowel Movements 0 Results - Labs CBC & Chem 7: 07/11/18 16:55 07/13/18 06:20 Laboratory Results - last 24 hr 07/13/18 06:20 Creatinine 0.84 Estimated GFR Greater than 89 Microbiology 07/11/18 16:55 Blood - Line Aerobic Blood Culture - Preliminary No growth in 2 days 07/11/18 16:55 Blood - Line Anaerobic Blood Culture - Preliminary No growth in 2 days 07/11/18 16:50 Blood - Line Aerobic Blood Culture - Preliminary No growth in 2 days 07/11/18 16:50 Blood - Line Anaerobic Blood Culture - Preliminary No growth in 2 days 07/11/18 16:20 Wound - Finger Gram Stain - Final 07/11/18 16:20 Wound - Finger Wound Culture - Preliminary S. aureus MRSA Pseudomonas species Assessment and Plan - Assessment and Plan 53yM cx +MRSA, pseudomonas with open wound right ring finger POD0 s/p I&D, rotational flap closure -Ab per ID, okay to discharge possibly tomorrow or later in the week once Ab determined by ID -Keep splint in place until followup, call office for followup likely 1-2 weeks ,
[2018-07-13] MEDS ORDERED: Morphine Sulfate Inj 2 MG/ML Vial ONE (12:01)
--- NOTE | 2018-07-13 12:08 | MB ---
cc: Juliana Lund MD DATE: 07/13/2018 REASON FOR CONSULTATION: Open wound, right ring finger. HISTORY OF PRESENT ILLNESS: Franklin Santacruz is a 53-year-old right-hand dominant male with past medical history significant for bipolar disorder and personality disorder, who currently does not work. He states that he had a small wound over the radial aspect of the right ring finger approximately 1 week ago. He presented to the emergency room for the first time on 07/11/2018. He was admitted and started on IV antibiotics. He reports improvement in the wound since admission. Cultures are growing MRSA and Pseudomonas. The patient denies any prior significant injuries to the right hand. He denies any history of IV drug use. He denies any paresthesias. He does report stiffness over the finger. SOCIAL HISTORY: Again, the patient does not work. Social alcohol use. Denies tobacco or drug use. PHYSICAL EXAMINATION: The patient is alert and oriented. There is erythema over the right ring finger. Function intact of FDS and FDP. Sensation intact on the radial and ulnar side. Less than 2 second capillary refill. There is approximately a 2 x 2 open area over the dorsal radial aspect of the right ring finger at the level of the proximal phalanx. There is some purulence. LABORATORY DATA: White count 8. IMAGING: X-ray of the right hand shows no evidence of osteomyelitis, fracture or dislocation. ASSESSMENT AND PLAN: A 53-year-old male with a wound with cultures positive for methicillin-resistant Staphylococcus aureus and Pseudomonas. At this time I recommended surgical intervention. The patient would like to proceed. Risks were explained, which include, but are not limited to wound complications, infection, stiffness, pain, need for additional surgeries including skin graft and he elected to proceed. This was done at the earliest available time in the operating room. Juliana Lund MD [facility]/ct , 11:45 AM , 11:50 AM
--- NOTE | 2018-07-13 12:12 | MP ---
cc: Juliana Lund MD DATE OF OPERATION: 07/13/2018 PREOPERATIVE DIAGNOSIS: Open wound, right ring finger. POSTOPERATIVE DIAGNOSIS: Open wound, right ring finger. PROCEDURES: 1. Irrigation and debridement, right ring finger, including skin, subcutaneous tissue, muscle and bone. 2. Rotational flap closure, right ring finger, including complex closure technique measuring approximately 2 x 2 cm. SURGEON: Juliana Lund MD ANESTHESIA: General and local. TOURNIQUET TIME: 25 minutes at 200 mmHg. SPECIMENS: Culture. INDICATIONS FOR PROCEDURE: Franklin Santacruz is a 53-year-old male who presented with approximately 1 week history of a wound over the radial aspect of the right ring finger. Cultures were positive for MRSA and Pseudomonas. The patient is admitted on IV antibiotics with improvement. He elected to proceed with surgical intervention. Risks were explained, which include, but are not limited to wound complication, infection, stiffness, pain, need for additional surgeries and he elected to proceed. DESCRIPTION OF PROCEDURE: The patient was identified in the preoperative holding and the correct extremity was marked. The patient was taken to the operating room where anesthesia was induced. The right upper extremity was prepped and draped in the normal sterile fashion. A culture was sent. The wound was irrigated with antibiotic saline, including skin, subcutaneous tissue, muscle and bone using a rongeur. Following this, there was approximately a 2 x 2 cm open area over the dorsal radial aspect of the right ring finger. Using rotational flap and complex closure technique, this was closed with horizontal mattress sutures. Tourniquet was released. There was good capillary refill to the flap and the finger. The patient was placed into a bulky dressing with a splint with the finger in extension to protect the repair. RECOMMENDATIONS: The patient should keep this on until followup. Likely consult with infectious disease. The patient may be discharged once antibiotics are arranged for followup in approximately 2 weeks. Juliana Lund MD [facility]/nd , 11:47 AM , 11:52 AM
--- NOTE | 2018-07-13 13:28 | P.CONID ---
History of Present Illness Service: Infectious disease Consult date: 07/13/18 Requesting Physician: Juliana Lund Reason for Consult: RT 4th finger infection Primary Care Provider: No Primary Care Physician Chief Complaint: Right 4th finger infection. History of Present Illness: 53/M says he had a pimple on his rt 4th finger and he tried to burst it and then it got worse and so patient came to the hospital. He had a abscess that was drained by hand surgery and pt just back from OR. No fever, chills Review of Systems Constitutional: Denies body ache(s), Denies fever(s), Denies headache(s) Eyes: Denies blurry vision, Denies bulging eyes Ears, Nose, Mouth, and Throat: Denies bad breath, Denies change in voice, Denies hearing loss Cardiovascular: Denies chest pain, Denies chest pain at rest Respiratory: Denies chest congestion, Denies cough Gastrointestinal: Denies abdominal pain, Denies constipation, Denies loose stools Genitourinary: Denies decreased urination, Denies painful urination Musculoskeletal: Denies abnormal walking, Denies back pain Skin/Breast: Reports boil, Reports lesions, Denies dry skin, Denies nail changes Neurologic: Denies memory loss, Denies convulsions Psychiatric: Denies anxiety, Denies confusion Allergic/Immunologic: Denies GI upset with certain foods PMFSH - History History Provided By: Patient - Medical History Medical History: Medical History (Last Reviewed 07/11/18 @ 22:16 by Andrey Huerta DO) Bipolar 1 disorder Borderline personality disorder Pancreatitis - Tobacco History Second Hand Smoke Exposure: No Smoking Status: Never smoker - Alcohol History How Often Do You Have a Drink Containing Alcohol: 2 to 3 times a week - Substance Use History Substance History: Active Abuse - Substance Use Type Crack/Cocaine Status: Active Route Used: By Mouth Frequency: "VERY RARELY" Reason for Use: Get High - Immunization History Tetanus Immunization: Unsure Medications and Allergies Active Medications: Active Medications Acetaminophen (Tylenol) 650 mg PO Q4H PRN PRN Reason: Headache, fever, pain 1-4 Hydrocodone Bitart/Acetaminophen ([place] 7.5/325) 1 tab PO Q6H PRN PRN Reason: Pain 5-10 Al Hydroxide/Mg Hydroxide (Milk Of Magnesia Liq) 30 ml PO Q12H PRN PRN Reason: Mild Constipation Bisacodyl (Dulcolax Supp) 10 mg RECTAL DAILY PRN PRN Reason: SEVERE CONSITIPATION Bupropion HCl (Wellbutrin Xl) 150 mg PO HS [facility] Fluoxetine HCl (Prozac) 20 mg PO HS [facility] Hydroxyzine Pamoate (Vistaril) 25 mg PO QID [facility] Last Admin: 07/13/18 09:03 Dose: 25 mg Sodium Chloride (Ns Inj) 1,000 mls @ 100 mls/hr IV.CONT .Q10H [facility] Last Admin: 07/13/18 12:06 Dose: Not Given Vancomycin HCl 1,500 mg/ (Sodium Chloride) 515 mls @ 250 mls/hr IV.SIG Q12H [facility] Last Infusion: 07/13/18 09:32 Dose: Infused Lactated Ringer's (Lr 1000 Ml Inj) 1,000 mls @ 30 mls/hr IV.SIG .Q24H [facility] Stop: 07/13/18 14:44 Last Admin: 07/13/18 09:40 Dose: 30 mls/hr Sodium Chloride (Ns Inj) 500 mls @ 30 mls/hr IV.SIG .Q10H [facility] Last Admin: 07/13/18 12:04 Dose: Not Given Lactulose (Lactulose Liq) 30 ml PO DAILY PRN PRN Reason: SEVERE CONSITIPATION Levofloxacin (Levaquin) 750 mg PO DAILY [facility] Last Admin: 07/13/18 11:25 Dose: Not Given Miscellaneous Information ([facility] Ordered Lab Info) 0 each OTHER ONCE ONE Stop: 07/13/18 15:46 Ondansetron HCl (Zofran Inj) 4 mg IV.PUSH Q6H PRN PRN Reason: NAUSEA OR VOMITING Pharmacy Profile Note (Vancomycin Consult Pharmacy) 1 each OTHER UNSCH PRN PRN Reason: Pharmacy to dose Sennosides (Senokot) 17.2 mg PO Q12H PRN PRN Reason: Moderate Constipation Ziprasidone (Geodon) 40 mg PO [facility] Allergies Allergy/AdvReac Type Severity Reaction Status Date / Time No Known Allergies Allergy Verified 07/11/18 15:46 Home Medications Medication Instructions Recorded Confirmed Type bupropion HCl 150 mg PO HS 07/11/18 07/11/18 History fluoxetine 20 mg PO HS 07/11/18 07/11/18 History hydroxyzine pamoate [Vistaril] 25 mg PO QID 07/11/18 07/11/18 History ziprasidone HCl 40 mg PO HS 07/11/18 07/11/18 History Exam Vital signs: Vital Signs 07/12/18 16:00 07/12/18 20:00 07/13/18 00:00 Temperature 96.7 F L 96.4 F L 97.3 F L Pulse Rate 56 L 57 L 66 Respiratory Rate 18 18 18 Blood Pressure 131/89 130/88 122/83 Pulse Oximetry 96 98 94 L 07/13/18 08:00 07/13/18 09:40 07/13/18 11:44 Temperature 96.6 F L 98.0 F 97.5 F L Pulse Rate 64 59 L 72 Respiratory Rate 18 16 14 Blood Pressure 128/95 H 147/98 H 149/94 H Pulse Oximetry 95 95 95 07/13/18 12:01 07/13/18 12:10 Temperature 97.5 F L Pulse Rate 62 61 Respiratory Rate 16 16 Blood Pressure 153/100 H 160/106 H Pulse Oximetry Intake & Output 07/12/18 07/13/18 07/13/18 18:59 06:59 18:59 Intake Total 1715 / 1715 2700 / 2700 3215 / 3215 Balance 1715 / 1715 2700 / 2700 3215 / 3215 Weight 88.7 kg Intake: IV 1715 / 1715 1200 / 1200 2415 / 2415 NS Inj 1,000 ML @ 100 mls/hr IV 1000 / 1000 1000 / 1000 1800 / 1800 .CONT .Q10H [facility] Rx#:[id number] Unasyn Inj 3 GM In NS Inj 100 200 / 200 200 / 200 100 / 100 ML @ 200 mls/hr IV.SIG Q6H [facility] Rx#:[id number] Vancomycin Inj 1,500 MG In NS 515 / 515 515 / 515 Inj 500 ML @ 250 mls/hr IV.SIG Q12H [facility] Rx#:[id number] Anesthesia Amount 800 / 800 Other 1500 / 1500 Other: Other Intake Source Saline Solution # Voids 4 # Bowel Movements 0 - Constitutional no acute distress, somnolent - Routine HEENT Exam Head: Present: normocephalic, atraumatic Eye: Present: EOMI, conjunctivae pink ENT: Present: mucous membranes moist, nares patent - Routine Neck Exam Present: supple, full ROM. Absent: JVD - Routine Chest/Breast/Axilla Exam Chest wall: Absent: tenderness, mass - Routine Respiratory Exam Present: CTA bilaterally. Absent: accessory muscle use, rales - Routine Cardiovascular Exam Present: RRR, S1, S2. Absent: murmur - Routine Abdominal Exam Present: soft, normoactive bowel sounds. Absent: tenderness, distended - Routine Extremities Exam Absent: cyanosis, edema - Routine Skin Exam Present: wounds (Rt 4th finger with dressing) - Routine Neurological Exam Present: alert, oriented X3, moving all extremities Results - Labs CBC & Chem 7: 07/11/18 16:55 07/13/18 06:20 Labs: Laboratory Results - last 24 hr 07/13/18 06:20 Creatinine 0.84 Estimated GFR Greater than 89 Assessment and Plan (1) Abscess of finger of right hand Status: Acute Code(s): L02.511 - Cutaneous abscess of right hand (2) Cellulitis of hand Status: Acute Code(s): L03.119 - Cellulitis of unspecified part of limb - Plan Blood cultures negative Wound cultures with MRSA S to quinolones and Pseudomonas S/p I & D today- discussed with DR Lund - was debrided and wound closed Continue IV Vancomycin and Levofloxacin for now When ready for discharge should be able to take a quinolone for 3 weeks with close follow up.
[2018-07-13] MEDS ORDERED: Pharmacy Ordered Lab Info OTHER ONE (15:45)
[2018-07-13] MEDS ORDERED: Influenza (Quadrivalent) Vaccine 0.5 ML Syringe IM ONE (16:00)
[2018-07-13] MEDS ORDERED: buPROPion 150 MG 12 HR Tablet PO SCH (21:00)
[2018-07-13] MEDS ORDERED: FLUoxetine 20 MG Capsule PO SCH (21:00)
[2018-07-14] MEDS: Sod Chloride 0.9% Inj 1,000 ML IV.CONT SCH (06:20)
[2018-07-14] MEDS: Vancomycin Inj 1,500 MG in Sodium Chlor 0.9% Inj 500 ML IV.SIG SCH (06:24)
[2018-07-14 06:59] LABS: Glomerular Filtration Rate Greater Than 89 mL/min (>89)
[2018-07-14 10:04] VITALS: BP 112/74; PULSE 50; RESP 20; TEMP 96.3; O2SAT 96
--- NOTE | 2018-07-14 10:37 | P.PN ---
Subjective Interval history: Follow-up for right-sided fourth digit infection. Patient is currently doing well. He reports resolution of his hot flashes. He also reports resolution of his numbness feeling in his right upper extremity. No fever or chills. Physical Exam Vital signs: Vital Signs 07/13/18 11:44 07/13/18 12:01 07/13/18 12:10 Temperature 97.5 F L 97.5 F L Pulse Rate 72 62 61 Respiratory Rate 14 16 16 Blood Pressure 149/94 H 153/100 H 160/106 H Pulse Oximetry 95 07/13/18 16:00 07/13/18 20:00 07/14/18 00:00 Temperature 97.0 F L 96.1 F L 96.0 F L Pulse Rate 75 80 81 Respiratory Rate 18 18 18 Blood Pressure 170/72 H 131/77 129/72 Pulse Oximetry 97 92 L 94 L 07/14/18 08:00 Temperature 96.3 F L Pulse Rate 50 L Respiratory Rate 20 Blood Pressure 112/74 Pulse Oximetry 96 Intake & Output 07/13/18 07/14/18 07/14/18 18:59 06:59 18:59 Intake Total 3215 / 3215 1515 / 1515 Output Total 400 / 400 Balance 2815 / 2815 1515 / 1515 Weight 91.1 kg Intake: IV 2415 / 2415 1515 / 1515 NS Inj 1,000 ML @ 100 mls/hr IV 1800 / 1800 1000 / 1000 .CONT .Q10H [facility] Rx#:[id number] Unasyn Inj 3 GM In NS Inj 100 100 / 100 ML @ 200 mls/hr IV.SIG Q6H [facility] Rx#:[id number] Vancomycin Inj 1,500 MG In NS 515 / 515 515 / 515 Inj 500 ML @ 250 mls/hr IV.SIG Q12H [facility] Rx#:[id number] Anesthesia Amount 800 / 800 Output: Urine 400 / 400 Other: # Voids 5 3 # Bowel Movements 0 Narrative: GENERAL: Alert, oriented x3, NAD. SKIN: Warm and dry. HEAD: Normocephalic. EYES: No scleral icterus. No injection or drainage. NECK: Supple, trachea midline. No JVD or lymphadenopathy. CARDIOVASCULAR: Regular rate and rhythm without murmurs, gallops, or rubs. RESPIRATORY: Breath sounds equal bilaterally. No accessory muscle use. GASTROINTESTINAL: Abdomen soft, non-tender, nondistended. MUSCULOSKELETAL: No cyanosis, or edema. Right hand third and fourth digits wrapped in bandage. Able to move fingers. BACK: Nontender without obvious deformity. No CVA tenderness. Results - Labs CBC & Chem 7: 07/11/18 16:55 07/14/18 06:23 Laboratory Results - last 24 hr 07/13/18 07/14/18 16:00 06:23 Creatinine 0.80 Estimated GFR Greater than 89 Vancomycin Trough 9.9 Microbiology 07/13/18 11:15 Tissue - Finger Gram Stain - Final 07/11/18 16:20 Wound - Finger Gram Stain - Final 07/11/18 16:20 Wound - Finger Wound Culture - Final S. aureus MRSA Pseudomonas aeruginosa 07/11/18 16:55 Blood - Line Aerobic Blood Culture - Preliminary No growth in 2 days 07/11/18 16:55 Blood - Line Anaerobic Blood Culture - Preliminary No growth in 2 days 07/11/18 16:50 Blood - Line Aerobic Blood Culture - Preliminary No growth in 2 days 07/11/18 16:50 Blood - Line Anaerobic Blood Culture - Preliminary No growth in 2 days Assessment and Plan - Plan Mr. Santacruz is a very pleasant 53-year-old male with a history of bipolar disorder, borderline personality disorder, cocaine abuse who presents to the emergency department on 07/11/2018 due to worsening infection of his right hand fourth digit. Hand surgery was consulted from ED. Acute right hand fourth digit infection Worsening infection despite using topical antibiotics at home. -Culture is growing MRSA and pseudomonas. Continue Levaquin and vancomycin. Consulted hand surgery. Patient is s/p I&D, rotational flap closure 2017. Tylenol and [place] for pain management. History of bipolar disorder History of borderline personality disorder No acute concerns. Continue home meds. Cocaine abuse Patient is counseled. Full code. SCDs, ambulation. Discharge plan: Patient will likely be discharged today.
[2018-07-14] MEDS: levoFLOXacin 750 MG Tablet PO SCH (11:17)
--- NOTE | 2018-07-14 16:29 | P.DS ---
Date of admission: 07/12/18 13:04 Primary care physician: No Primary Care Physician Attending physician on discharge: Andrey Huerta Anticipated date of discharge: 07/14/18 Brief History from admission: Mr. Santacruz is a pleasant 53-year-old male with a history of bipolar disorder, borderline personality disorder who presents to the emergency department on 07/11/2018 due to worsening infection of his right hand fourth digit. Patient works in [employer] business. However he believes his finger flexion is likely due to a spider bite. Approximately 7 days ago, patient noticed a small pustular lesion on the tip of his fourth digit. He squeezed it and placed a Band-Aid. Gradually, however, his lesion only got worse despite using Band-Aid and topical antibiotics. He did not have any fever or chills. His finger started becoming more purplish in color. Due to worsening of his symptoms he decided to come to the emergency department. Patient denies any chest pain, shortness of breath, fever or chills. He denies any abdominal pain , changes in bowel or bladder habits. Hand surgery was contacted by ED provider. Patient will likely undergo hand surgery tomorrow 07/12/2018. Past medical history: Bipolar disorder, borderline personality disorder. Also has a history of alcoholic pancreatitis. Past surgical history: No major surgery in the past Social history: Patient denies using tobacco or alcohol. However he does not smoke cocaine. Family history: Father's side has a history of diabetes mellitus. Patient update on day of discharge: Follow-up for right-sided fourth digit infection. Patient is currently doing well. He reports resolution of his hot flashes. He also reports resolution of his numbness feeling in his right upper extremity. No fever or chills. DS: Medications - Discharge Medications Prescriptions: levofloxacin 750 mg PO DAILY #21 tab sulfamethoxazole-trimethoprim [Bactrim DS] 1 tab PO BID #42 tab DS: Summary Hospital Course: Mr. Santacruz is a very pleasant 53-year-old male with a history of bipolar disorder, borderline personality disorder, cocaine abuse who presents to the emergency department on 07/11/2018 due to worsening infection of his right hand fourth digit. Hand surgery was consulted from ED. Acute right hand fourth digit infection Worsening infection despite using topical antibiotics at home. -Culture is growing MRSA and pseudomonas. Continue Levaquin and vancomycin. -Will continue Levaquin and Bactrim upon discharge to cover Pseudomonas and MRSA respectively. Consulted hand surgery. Patient is s/p I&D, rotational flap closure 2017. Tylenol and [place] for pain management. History of bipolar disorder History of borderline personality disorder No acute concerns. Continue home meds. Cocaine abuse Patient is counseled. Full code. SCDs, ambulation. - Time Spent with Patient Total time spent providing and/or coordinating discharge services: Less than 30 minutes - Quality: VTE Deep Vein Thrombosis/Pulmonary Embolism Present on Admission: No Exam Vital signs: Vital Signs 07/13/18 20:00 07/14/18 00:00 07/14/18 08:00 Temperature 96.1 F L 96.0 F L 96.3 F L Pulse Rate 80 81 50 L Respiratory Rate 18 18 20 Blood Pressure 131/77 129/72 112/74 Pulse Oximetry 92 L 94 L 96 Intake & Output 07/13/18 07/14/18 07/14/18 18:59 06:59 18:59 Intake Total 3215 / 3215 1515 / 1515 Output Total 400 / 400 Balance 2815 / 2815 1515 / 1515 Weight 91.1 kg Intake: IV 2415 / 2415 1515 / 1515 NS Inj 1,000 ML @ 100 mls/hr IV 1800 / 1800 1000 / 1000 .CONT .Q10H [facility] Rx#:[id number] Unasyn Inj 3 GM In NS Inj 100 100 / 100 ML @ 200 mls/hr IV.SIG Q6H [facility] Rx#:[id number] Vancomycin Inj 1,500 MG In NS 515 / 515 515 / 515 Inj 500 ML @ 250 mls/hr IV.SIG Q12H [facility] Rx#:[id number] Anesthesia Amount 800 / 800 Output: Urine 400 / 400 Other: # Voids 5 3 # Bowel Movements 0 Narrative: GENERAL: Alert, oriented x3, NAD. SKIN: Warm and dry. HEAD: Normocephalic. EYES: No scleral icterus. No injection or drainage. NECK: Supple, trachea midline. No JVD or lymphadenopathy. CARDIOVASCULAR: Regular rate and rhythm without murmurs, gallops, or rubs. RESPIRATORY: Breath sounds equal bilaterally. No accessory muscle use. GASTROINTESTINAL: Abdomen soft, non-tender, nondistended. MUSCULOSKELETAL: No cyanosis, or edema. Right hand third and fourth digits wrapped in bandage. Able to move fingers. BACK: Nontender without obvious deformity. No CVA tenderness. Results Procedures completed during hospitalization: I&D, rotational flap closure 07/13/2018. Labs on day of discharge: Labs from last 24 hours 07/14/18 07/13/18 06:23 16:00 Creatinine 0.80 Estimated GFR Greater than 89 Vancomycin Trough 9.9 Preliminary micro results at discharge 07/13/18 11:15 Wound Culture - Preliminary Tissue - Finger S. aureus MRSA 07/11/18 16:55 Aerobic Blood Culture - Preliminary Blood - Line No growth in 3 days Anaerobic Blood Culture - Preliminary No growth in 3 days 07/11/18 16:50 Aerobic Blood Culture - Preliminary Blood - Line No growth in 3 days Anaerobic Blood Culture - Preliminary No growth in 3 days - Impressions ITS Impressions Finger X-Ray 07/11/18 16:19 CONCLUSION: Fourth digit radiographs within normal limits. Discharge Plan - Discharge Disposition Patient Disposition: 01 Discharge Home - Discharge Condition Condition: Good - Discharge Order Discharge Orders: Discharge Order (Routine); Ordered 07/14/18 Ordered By: Andrey Huerta Hand Surgery Clear for Discharge (Routine); Ordered 07/14/18 Ordered By: Juliana Lund - Discharge Details Anticipated Discharge Date: 07/14/18 Discharge Comment: Per Hand surgery: Keep splint in place until followup, call office for followup likely 1-2 weeks, - Physicians Team Primary Care Provider: Primary Care Lucinda Garsia Attending Provider: Andrey Huerta Other Providers: Juliana Lund MD ; Chana Alvarez MD
== END 2018-07-14 14:04 | disposition home or self-care (01) ==
LOC: PHEFT 15:41 → PHEDA 15:41 → PH3 20:25
PROVIDERS: ADMIT Hospitalist; ATTEND Hospitalist